=== PATIENT | female | born 1995 | race Caucasian/White ===

== ENCOUNTER 2023-07-16 02:12 | Emergency (ER) | payer OTHER, SELFPAY ==
[2023-07-16 02:42] VITALS: BMI 42.9
[2023-07-16 02:45] VITALS: BP 134/92; PULSE 94; RESP 18; TEMP 37.1; O2SAT 100
[2023-07-16 03:09] LABS: MANUAL DIFF FLAG NO
[2023-07-16 03:10] LABS: Basophils Absolute Auto 0.1 X10*3/uL (0.0-0.2); Basophils Percent Auto 0.7 % (0-2); Eosinophils Absolute Auto 0.2 X10*3/uL (0.0-0.4); Eosinophils Percent Auto 2.1 % (0-4); Hematocrit 40.9 % (37.0-47.0); Hemoglobin 13.6 g/dl (12.0-16.0); Imm Gran Abs Auto 0.02 X10*3/uL (0.00-0.03); Imm Gran Pct Auto 0.2 % (0.0-0.4); Lymphocytes Absolute Auto 2.4 X10*3/uL (1.2-4.9); Lymphocytes Percent Auto 28.2 % (20-40); Mean Corpuscular HGB Conc 33.3 g/dl (31.0-35.0); Mean Corpuscular Hemoglobin 29.5 pg (27.0-33.0); Mean Corpuscular Volume 88.7 fL (80.0-98.0); Mean Platelet Volume 9.5 fL (9.4-12.3); Monocytes Absolute Auto 0.8 X10*3/uL (0.1-1.2); Monocytes Percent Auto 8.8 % (2-11); Neutrophils Absolute Auto 5.2 x10*3/uL (2.0-8.3); Platelet Count 313 X10*3/uL (160-400); Red Blood Count 4.61 X10*6/uL (4.20-5.50); Red Cell Distribution Width 12.3 % (11.0-16.0); White Blood Count 8.6 X10*3/uL (4.8-10.8)
[2023-07-16] MEDS: Doxycycline Monohydrate 100 MG CAPSULE PO (03:13)
[2023-07-16] MEDS: Diphth,Pertus(ACell),Tet Adult 0.5 ML SYRINGE IM (03:13)
[2023-07-16 03:33] LABS: Alanine Aminotransferase 27 U/L (0-31); Albumin Level 4.3 g/dL (3.5-5.0); Alkaline Phosphatase 133 U/L (39-117); Anion Gap 13 (12-20); Aspartate Amino Transferase 18 U/L (5-31); Bilirubin Total 0.3 mg/dL (0.0-1.0); Blood Urea Nitrogen 13 mg/dL (9-16); Calcium 9.1 mg/dL (8.4-10.2); Carbon Dioxide 24 mmol/L (22-29); Chloride 106 mmol/L (96-108); Creatinine Clr Calc Pharmacy 127.2; Estimated Glomerular Filt Rate > 60; Glucose Random 123 mg/dL (60-115); Potassium 3.9 mmol/L (3.3-5.1); Sodium 139 mmol/L (135-145); Total Protein 7.4 g/dL (6.5-8.0)
--- OUTSIDE RECORDS SUMMARY | 2023-07-16 03:37 | XMS_ITS | Continuity of Care Document ---
Author Name Unknown Organization [facility] ter Address [address] [place] [address]- Care Team Providers Care Tool Design Drafter Name Role Phone John Espinoza MD Primary Care Physician Encounter [facility] [place] Date(s): 03/12/22 - 03/12/[address] [address]- Discharge Disposition: A-D/C Home Attending Physician: Julien Ames MD Admitting Physician: Julien Ames MD Referring Physician: Julien Ames MD Allergies, Adverse Reactions, Alerts No Known Allergies Medications Abilify 5 mg oral tablet 5 mg, 1, tablet, By Mouth, Daily, # 30 tablet, Refills 0, Maintenance, 01/23/22 15:44:00 EDT, Partial fill upon patient request if the prescription is for a schedule II opioid drug. Start Date: 01/23/22 Status: Ordered Colace sodium 100 mg oral capsule 100 mg, 1, capsule, By Mouth, 2 times a day, PRN, # 100 capsule, Refills 0, Tot. Refills 0, Maintenance, for constipation, 03/12/22 7:19:00 EDT, Route to Pharmacy Electronically, [id number], Partial fill upon patient request if the prescriptio... Start Date: 03/12/22 Status: Ordered ibuprofen 800 mg oral tablet 800 mg, 1, tablet, By Mouth, Every 8 hours, # 30 tablet, Refills 0, Tot. Refills 0, Maintenance, 03/12/22 7:19:00 EDT, Route to Pharmacy Electronically, [facility]/pharmacy #[id number], Partial fill upon patient request if the prescription is for a schedule II opi... Start Date: 03/12/22 Status: Ordered LaMICtal 100 mg oral tablet 100 mg, 1, tablet, By Mouth, 2 times a day, Refills 0, Maintenance, 01/23/22 14:59:00 EDT, Partial fill upon patient request if the prescription is for a schedule II opioid drug. Start Date: 01/23/22 Status: Ordered simethicone 80 mg oral tablet, chewable 80 mg, 1, tablet, Chew, 4 times a day, PRN, # 100 tablet, Refills 0, Tot. Refills 0, Maintenance, as needed for gas, 03/12/22 7:19:00 EDT, Route to Pharmacy Electronically, [facility]/pharmacy #[id number], Partial fill upon patient request if the prescription is f... Start Date: 03/12/22 Status: Ordered Tylenol 325 mg oral capsule 2 capsule = 650 mg, By Mouth, Every 4 hours, PRN as needed for pain, # 90 capsule, 0 Refills, Maintenance, 03/12/22 7:19:00 EDT, Capsule, [facility]/pharmacy #[id number], Partial fill upon patient request if the prescription is for a schedule II opioid drug., 110.... Start Date: 03/12/22 Status: Ordered Vital Signs Most recent to oldest [Reference Range]: 1 2 3 Oxygen Saturation [94-100 %] 99 % (03/12/22 9:15 AM) 100 % (03/12/22 9:00 AM) 100 % (03/12/22 8:45 AM) Pulse Rate [55-90 bpm] 83 bpm (03/12/22 6:46 AM) Blood Pressure [90-138/55-84 mm Hg] 129/75mm Hg (03/12/22 9:15 AM) 136/78mm Hg (03/12/22 9:00 AM) 142/82mm Hg *H* (03/12/22 8:45 AM) Respiratory Rate [16-30 br/min] 18 br/min (03/12/22 9:15 AM) 20 br/min (03/12/22 9:00 AM) 19 br/min (03/12/22 8:45 AM) Temperature [96.8-100.4 DegF] 96.8 DegF (03/12/22 9:15 AM) 97.6 DegF (03/12/22 8:45 AM) 96.9 DegF (03/12/22 6:46 AM) Liters per Minute 6 L/min (03/12/22 8:45 AM) Mode of Delivery (Oxygen) Room air (03/12/22 9:30 AM) Room air (03/12/22 9:15 AM) Simple face mask (03/12/22 9:00 AM) Blood pressure sites Arm, right (03/12/22 8:45 AM) Arm, left (03/12/22 6:46 AM) Temperature Route Temporal (03/12/22 9:15 AM) Temporal (03/12/22 8:45 AM) Temporal (03/12/22 6:46 AM) Dry Weight 110.6 kg (03/12/22 6:46 AM) Social History Social History Type Response Smoking Status Never (less than 100 in lifetime) entered on: 01/23/22 Sex
--- OUTSIDE RECORDS SUMMARY | 2023-07-16 03:37 | XMS_ITS | Continuity of Care Document ---
Author Name Unknown Organization [facility]i [facility] Address [address] [place] [address], [address] [place] [address]- Care Team Providers Care Industrial Roofer Helper Name Role Phone Alexis CARCAMO, John [id number] - [facility] [address] [facility], [address]th [place] [address]- Allergies, Adverse Reactions, Alerts No Known Allergies Medications Abilify 5 mg oral tablet 5 mg, 1, tablet, By Mouth, Daily, # 30 tablet, Refills 0, Maintenance, 01/23/22 15:44:00 EDT, Partial fill upon patient request if the prescription is for a schedule II opioid drug. Start Date: 01/23/22 Status: Ordered LaMICtal 100 mg oral tablet 100 mg, 1, tablet, By Mouth, 2 times a day, Refills 0, Maintenance, 01/23/22 14:59:00 EDT, Partial fill upon patient request if the prescription is for a schedule II opioid drug. Start Date: 01/23/22 Status: Ordered Social History Social History Type Response Smoking Status Never (less than 100 in lifetime) entered on: 01/23/22 Sex
--- OUTSIDE RECORDS SUMMARY | 2023-07-16 03:37 | XMS_ITS | Continuity of Care Document ---
Author Name Unknown Organization [facility] ter Address [address] [place] [address]- Care Team Providers Care Cub Reporter Name Role Phone Alexis CARCAMO, John Primary Care Physician [phone] Encounter [facility] [place] Date(s): 02/15/20 - 02/15/[address] [address]- [facility] Encounter Diagnosis Abdominal pain(Final) - 02/15/20 Discharge Disposition: A-D/C Home Attending Physician: Karyn Thornton MD Admitting Physician: Karyn Thornton MD Referring Physician: Not on Staff, Referring MD Allergies, Adverse Reactions, Alerts Substance Reaction Severity Status NKA Active Medications Flagyl 500 mg oral tablet 1 tablet = 500 mg, By Mouth, Every 12 hours, for 7 days, # 14 tablet, 0 Refills, Acute 02/22/20 13:54:00 EDT, 02/15/20 13:54:00 EDT, Tablet, [id number], 116.5, kg, 02/15/20 5:22:00 EDT, Dry Weight Start Date: 02/15/20 Stop Date: 02/22/20 Status: Ordered Results Orders for Microbiology Reports Name Date Wet Prep 02/15/20 Microbiology Reports TEST:Wet Prep STATUS:Auth (Verified) BODY SITE: SOURCE:VAGINA COLLECTED DATE/TIME:02/15/20 9:30 AM Wet Prep SPECIMEN DESCRIPTION : VAGINAL SPECIMEN SPECIAL REQUESTS : NONE DIRECT EXAM : 3+ WHITE BLOOD CELLS 1+ CLUE CELLS NO TRICHOMONAS OBSERVED NO YEAST OBSERVED REPORT STATUS : FINAL 02/15/2020 Vital Signs Most recent to oldest [Reference Range]: 1 2 3 Weight 116.5 kg (02/15/20 1:58 PM) 116.5 kg (02/15/20 5:22 AM) 116.5 kg (02/15/20 5:14 AM) Oxygen Saturation [94-100 %] 100 % (02/15/20 1:58 PM) 99 % (02/15/20 5:14 AM) Pulse Rate [55-90 bpm] 94 bpm *H* (02/15/20 1:58 PM) 91 bpm *H* (02/15/20 5:14 AM) Blood Pressure [90-138/55-84 mm Hg] 134/80mm Hg (02/15/20 1:58 PM) 147/74mm Hg *H* (02/15/20 5:14 AM) Respiratory Rate [16-30 br/min] 20 br/min (02/15/20 1:58 PM) 20 br/min (02/15/20 10:24 AM) 20 br/min (02/15/20 5:14 AM) Temperature [96.8-100.4 DegF] 98.3 DegF (02/15/20 5:14 AM) Mode of Delivery (Oxygen) Room air (02/15/20 1:58 PM) Room air (02/15/20 5:14 AM) Blood pressure sites Arm, left (02/15/20 1:58 PM) Arm, right (02/15/20 5:14 AM) Temperature Route Oral (02/15/20 5:14 AM) Dry Weight 116.5 kg (02/15/20 1:58 PM) 116.5 kg (02/15/20 5:22 AM) 116.5 kg (02/15/20 5:14 AM) Weight Obtained Via Standing scale (02/15/20 5:14 AM) Dry Weight Obtained Via Standing scale (02/15/20 5:14 AM)
--- OUTSIDE RECORDS SUMMARY | 2023-07-16 03:37 | XMS_ITS | Continuity of Care Document ---
Author Name Unknown Organization [facility] gonzalezC[facility]otechsteff[facility] Address [address] [facility], [address] [place] [address]- Care Team Providers Care Sleeping Car Porter Name Role Phone Alexis CARCAMO, John [id number] Date[facility] - [facility]12[facility] [address], [address]th [address] [place], [place] [address] Allergies, Adverse Reactions, Alerts No Known Allergies [...] 03/12/22 7:19:00 EDT, Route to Pharmacy Electronically, [facility]/pharmacy #[id number], Partial fill upon patient request if the prescriptio... Start Date: 03/12/22 Status: Ordered ibuprofen 800 mg oral tablet 800 mg, 1, tablet, By Mouth, Every 8 hours, # 30 tablet, Refills 0, Tot. Refills 0, Maintenance, 03/12/22 7:19:00 EDT, Route to Pharmacy Electronically, [facility]/pharmacy #[id number], Partial fill upon patient request if [...] 03/12/22 7:19:00 EDT, Route to Pharmacy Electronically, [facility]/pharmacy #[id number], Partial fill upon patient request if the prescription is f... Start Date: 03/12/22 Status: Ordered Tylenol 325 mg oral capsule 2 capsule = 650 mg, By Mouth, Every 4 hours, PRN as needed for pain, # 90 capsule, 0 Refills, Maintenance, 03/12/22 7:19:00 EDT, Capsule, [facility]/pharmacy #[id number], Partial fill upon patient request if the prescription is for a schedule II opioid drug., 110.... Start Date: 03/12/22 Status: Ordered Social History Social History Type Response Smoking Status Never (less than 100 in lifetime) entered on: 01/23/22 Sex
--- OUTSIDE RECORDS SUMMARY | 2023-07-16 03:37 | XMS_ITS | Continuity of Care Document ---
Author Name Unknown Organization [facility] Address Unknown Care Team Providers Care Claims Adjuster Name Role Phone Alexis CARCAMO, John Primary Care Physician [phone] Encounter [facility] [place] Date(s): 12/02/21 - 01/01/22 [facility] Allergies, Adverse Reactions, Alerts No Known Allergies
--- OUTSIDE RECORDS SUMMARY | 2023-07-16 03:37 | XMS_ITS | Continuity of Care Document ---
Author Name Unknown Organization [facility] Sumiradha gonzalezVTEX [facility] Address [address] [place] [address], [address], [place] [address]- Care Team Providers Care Medart Operator Name Role Phone John Espinoza MD Primary Care Phys[id number] - [facility]/26/[facility] Sumi Chelsea[facility] Surgical[facility] [address] [facility], [address] [place], [place] [address] Attending Physician: Julien Ames MD Referring Physician: John Espinoza MD Allergies, Adverse Reactions, Alerts No Known Allergies Medications Abilify 5 mg oral tablet 5 mg, 1, tablet, By Mouth, Daily, # 30 tablet, Refills 0, Maintenance, 01/23/22 15:44:00 EDT, Partial fill upon patient request if the prescription is for a schedule II opioid drug. Start Date: 01/23/22 Status: Ordered docusate sodium 100 mg oral capsule See Instructions, TAKE 1 CAPSULE BY MOUTH 2 TIMES A DAY NEEDED FOR CONSTIPATION, # 60 capsule, 1Refills, [id number], 110.6, kg, 03/12/22 6:46:00 EDT, Dry Weight Start Date: 03/14/22 Status: Ordered ibuprofen 800 mg oral tablet 800 mg, 1, tablet, By Mouth, Every 8 hours, # 30 tablet, Refills 0, Tot. Refills 0, Maintenance, 03/12/22 7:19:00 EDT, Route to Pharmacy Electronically, [facility]/pharmacy #[id number], Partial fill upon patient request if the [...] 03/12/22 7:19:00 EDT, Route to Pharmacy Electronically, [facility]/pharmacy #[id number], Partial fill upon patient request if the prescription is f... Start Date: 03/12/22 Status: Ordered Tylenol 325 mg oral capsule 2 capsule = 650 mg, By Mouth, Every 4 hours, PRN as needed for pain, # 90 capsule, 0 Refills, Maintenance, 03/12/22 7:19:00 EDT, Capsule, [facility]/pharmacy #[id number], Partial fill upon patient request if the prescription is for a schedule II opioid drug., 110.... Start Date: 03/12/22 Status: Ordered Social History Social History Type Response Smoking Status Never (less than 100 in lifetime) entered on: 01/23/22 Sex
--- OUTSIDE RECORDS SUMMARY | 2023-07-16 03:37 | XMS_ITS | Continuity of Care Document ---
Author Name Unknown Organization [facility] Sumi gonzalezInternet college internation [facility] Address [address] [facility], [address] [place] [address]- Care Team Providers Care Cane Furniture Maker Name Role Phone John Espinoza MD Primary [id number] Date[facility]28[facility] [address] [facility], [address] [place], [place] [address] Allergies, Adverse Reactions, Alerts No [...] NEEDED FOR CONSTIPATION, # 60 capsule, 1Refills, [facility] [id number], 110.6, kg, 03/12/22 6:46:00 EDT, Dry Weight Start Date: 03/14/22 Status: Ordered ibuprofen 800 mg oral tablet 800 mg, 1, tablet, By Mouth, Every 8 hours, # 30 tablet, Refills 0, Tot. Refills 0, Maintenance, 03/12/22 7:19:00 EDT, Route to Pharmacy Electronically, [facility]/pharmacy #[id number], Partial fill upon patient request if the [...] 03/12/22 7:19:00 EDT, Route to Pharmacy Electronically, [facility]/pharmacy #[id number], Partial fill upon patient request if the prescription is f... Start Date: 03/12/22 Status: Ordered Tylenol 325 mg oral capsule 2 capsule = 650 mg, By Mouth, Every 4 hours, PRN as needed for pain, # 90 capsule, 0 Refills, Maintenance, 03/12/22 7:19:00 EDT, Capsule, [facility]/pharmacy #[id number], Partial fill upon patient request if the prescription is for a schedule II opioid drug., 110.... Start Date: 03/12/22 Status: Ordered Social History Social History Type Response Smoking Status Never (less than 100 in lifetime) entered on: 01/23/22 Sex
--- OUTSIDE RECORDS SUMMARY | 2023-07-16 03:37 | XMS_ITS | Continuity of Care Document ---
Author Name Unknown Organization [facility] Address [address] [facility] [facility], [address] [place] [address]- Care Team Providers Care Hardening Machine Operator Name Role Phone John Espinoza MD Primary Care Physician [id number] Date(s): 03/13/22 - 04/12/22 [facility] [address], [address] [place], [place] [address] Allergies, Adverse Reactions, Alerts No [...] NEEDED FOR CONSTIPATION, # 60 capsule, 1Refills, [facility] [id number], 110.6, kg, 03/12/22 6:46:00 EDT, Dry Weight Start Date: 03/14/22 Status: Ordered ibuprofen 800 mg oral tablet 800 mg, 1, tablet, By Mouth, Every 8 hours, # 30 tablet, Refills 0, Tot. Refills 0, Maintenance, 03/12/22 7:19:00 EDT, Route to Pharmacy Electronically, [facility]/pharmacy #[id number], Partial fill upon patient request if the [...] 03/12/22 7:19:00 EDT, Route to Pharmacy Electronically, [facility]/pharmacy #[id number], Partial fill upon patient request if the prescription is f... Start Date: 03/12/22 Status: Ordered Tylenol 325 mg oral capsule 2 capsule = 650 mg, By Mouth, Every 4 hours, PRN as needed for pain, # 90 capsule, 0 Refills, Maintenance, 03/12/22 7:19:00 EDT, Capsule, [facility]/pharmacy #[id number], Partial fill upon patient request if the prescription is for a schedule II opioid drug., 110.... Start Date: 03/12/22 Status: Ordered Social History Social History Type Response Smoking Status Never (less than 100 in lifetime) entered on: 01/23/22 Sex
--- OUTSIDE RECORDS SUMMARY | 2023-07-16 03:37 | XMS_ITS | Continuity of Care Document ---
Author Name Unknown Organization [facility]urt nTok[facility] Address [address] [facility], [address] [place] [address]- Care Team Providers Care Superintendent Meters Name Role Phone John Espinoza MD Primary Care Physician [facility] [id number] Date(s): 03/27/22 - 04/26/22 [facility] [address] [facility], [address] [place], [place] [address] Attending Physician: Yg Ortiz Admitting Physician: AdmtrYg Referring Physician: Admtr, Ar8 Allergies, Adverse Reactions, Alerts No Known Allergies [...] NEEDED FOR CONSTIPATION, # 60 capsule, 1Refills, [facility] [address], 110.6, kg, 03/12/22 6:46:00 EDT, Dry Weight Start Date: 03/14/22 Status: Ordered ibuprofen 800 mg oral tablet 800 mg, 1, tablet, By Mouth, Every 8 hours, # 30 tablet, Refills 0, Tot. Refills 0, Maintenance, 03/12/22 7:19:00 EDT, Route to Pharmacy Electronically, [facility]/pharmacy #[id number], Partial fill upon patient request if the [...] 03/12/22 7:19:00 EDT, Route to Pharmacy Electronically, [facility]/pharmacy #[id number], Partial fill upon patient request if the prescription is f... Start Date: 03/12/22 Status: Ordered Tylenol 325 mg oral capsule 2 capsule = 650 mg, By Mouth, Every 4 hours, PRN as needed for pain, # 90 capsule, 0 Refills, Maintenance, 03/12/22 7:19:00 EDT, Capsule, [facility]/pharmacy #[id number], Partial fill upon patient request if the prescription is for a schedule II opioid drug., 110.... Start Date: 03/12/22 Status: Ordered Social History Social History Type Response Smoking Status Never (less than 100 in lifetime) entered on: 01/23/22 Sex
--- OUTSIDE RECORDS SUMMARY | 2023-07-16 03:37 | XMS_ITS | Continuity of Care Document ---
Author Name Unknown Organization [facility] Address [address] [facility], [address] [place] [address]- Care Team Providers Care Retort Fireman Name Role Phone John Espinoza MD Primary Care Physician [phone] [id number] Date(s): 02/26/22 - [facility] [address] [facility], [address] [place], [place] [address] Allergies, Adverse Reactions, Alerts No Known [...] NEEDED FOR CONSTIPATION, # 60 capsule, 1Refills, [facility], 110.6, kg, 03/12/22 6:46:00 EDT, Dry Weight Start Date: 03/14/22 Status: Ordered ibuprofen 800 mg oral tablet 800 mg, 1, tablet, By Mouth, Every 8 hours, # 30 tablet, Refills 0, Tot. Refills 0, Maintenance, 03/12/22 7:19:00 EDT, Route to Pharmacy Electronically, [facility][id number], Partial fill upon patient request if the [...] 03/12/22 7:19:00 EDT, Route to Pharmacy Electronically, [facility][id number], Partial fill upon patient request if the prescription is f... Start Date: 03/12/22 Status: Ordered Tylenol 325 mg oral capsule 2 capsule = 650 mg, By Mouth, Every 4 hours, PRN as needed for pain, # 90 capsule, 0 Refills, Maintenance, 03/12/22 7:19:00 EDT, Capsule, [facility]/pharmacy #[id number], Partial fill upon patient request if the prescription is for a schedule II opioid drug., 110.... Start Date: 03/12/22 Status: Ordered Social History Social History Type Response Smoking Status Never (less than 100 in lifetime) entered on: 01/23/22 Sex
--- OUTSIDE RECORDS SUMMARY | 2023-07-16 03:37 | XMS_ITS | Continuity of Care Document ---
Author Name Unknown Organization [facility] Sumi Hurt n's [facility] Address [address] [place] [address], [address] [place] [address]- Care Team Providers Care Support Services Specialist Name Role Phone John Espinoza MD Primary Care Physician En[place] [facility] [place] Date(s): 01/23/22 - 01/30/22 [facility] Sumi Tranvia680s [facility] [address] [facility], [address] [place] [address]- Attending Physician: Julien Ames MD Referring Physician: [...] opioid drug. Start Date: 01/23/22 Status: Ordered Procedures Procedure Date Related Diagnosis Body Site Status section Complete d Vital Signs Most recent to oldest [Reference Range]: 1 Weight 111.4 kg (01/23/22 2:57 PM) Pulse Rate [55-90 bpm] 81 bpm (01/23/22 2:57 PM) Blood Pressure [90-138/55-84 mm Hg] 132/ 74mm Hg (01/23/22 2:57 PM) Blood pressure sites Arm, right (01/23/22 2:57 PM) Dry Weight 111.4 kg (01/23/22 2:57 PM) Weight Obtained Via Standing scale (01/23/22 2:57 PM) Dry Weight Obtained Via Standing scale (01/23/22 2:57 PM) Social History Social History Type Response Smoking Status Never (less than 100 in lifetime) entered on: 01/23/22 Sex
--- NOTE | 2023-07-16 04:08 | ED_ITS ---
HPI - Skin/Abscess/Foreign Bdy General Chief complaint: Skin/Abscess/Foreign Body Stated complaint: Infection from tattoo? Time Seen by Provider: 07/16/23 03:00 Source: patient Mode of arrival: ambulatory Limitations: no limitations History of Present Illness HPI narrative: Patient has tattoo on right lower extremity 2 days ago notices pain increased redness surrounding the tattoo area no fever no chills Related Data Previous Rx's Medication Instructions Recorded cephalexin 500 mg capsule 500 mg PO QID 10 days #40 caps 07/16/23 doxycycline hyclate 100 mg tablet 100 mg PO BID #20 tabs 07/16/23 Allergies Allergy/AdvReac Type Severity Reaction Status Date / Time No Known Allergies Allergy Verified 07/16/23 02:52 Review of Systems 2 Review of Systems: Yes all other systems are reviewed and are negative [facility] Social History Social History Advance Directives: No Advance Directives Information Provided: Yes Physical Exam 2 Vital Signs: Vital Signs: Last Vital Signs Temp 98.7 F 07/16/23 02:45 Pulse 94 07/16/23 02:45 Resp 18 07/16/23 02:45 BP 134/92 H 07/16/23 02:45 Pulse Ox 100 07/16/23 02:45 O2 Del Method Room Air 07/16/23 02:45 BMI result Body Mass Index 42.9 Appearance: Alert. Oriented X3. No acute distress. CVS: Normal heart rate and rhythm. Pulses normal. Respiratory: No respiratory distress. Equal air entry bilateral, Abdomen: Soft and nontender. Bowel sounds are present, Skin: Skin warm and dry. Erythema around surrounding the tattoo area no pus discharge Extremities: No lower extremity edema. No calf tenderness Neuro: Oriented X 3. Medications Administered Discontinued Medications Generic Name Dose Route Start Last Admin Trade Name Freq PRN Reason Stop Dose Admin Diphtheria/Tetanus/Acell Pertussis 0.5 ml 07/16/23 03:04 07/16/23 03:13 Diphth,Pertus(Acell),Tet Adult 0.5 Ml Syringe IM 07/16/23 03:05 0.5 ml .ONCE ONE Administration Doxycycline Monohydrate 100 mg 07/16/23 03:03 07/16/23 03:13 Doxycycline Monohydrate 100 Mg Capsule PO 07/16/23 03:04 100 mg ONCE ONE Administration Cefazolin Sodium 1 gm/ Sodium 50 mls @ 100 mls/hr 07/16/23 03:03 07/16/23 03:14 Chloride IV 07/16/23 03:32 100 mls/hr ONCE ONE Administration Medical Decision Making Medical Decision Making [facility] Narrative: Patient has mild cellulitis around tattoo area tetanus shot was given along with IV Ancef discharge patient home on cephalexin and doxycycline Differential Diagnosis Differential Diagnoses: The differential diagnosis associated with the presentation includes Cellulitis/abscess Lab Data [facility] Lab Attestation statement: I reviewed the patient's lab results. 07/16/23 03:04 07/16/23 03:04 Labs: Lab Results 07/16/23 Range/Units 03:04 WBC 8.6 (4.8-10.8) X10*3/uL RBC 4.61 (4.20-5.50) X10*6/uL Hgb 13.6 (12.0-16.0) g/dl Hct 40.9 (37.0-47.0) % MCV 88.7 (80.0-98.0) fL MCH 29.5 (27.0-33.0) pg MCHC 33.3 (31.0-35.0) g/dl RDW 12.3 (11.0-16.0) % Plt Count 313 (160-400) X10*3/uL MPV 9.5 (9.4-12.3) fL Immature Gran % (Auto) 0.2 (0.0-0.4) % Neut % (Auto) 60.0 (45-73) % Lymph % (Auto) 28.2 (20-40) % [place] % (Auto) 8.8 (2-11) % Eos % (Auto) 2.1 (0-4) % Baso % (Auto) 0.7 (0-2) % Lymph # (Auto) 2.4 (1.2-4.9) X10*3/uL [place] # (Auto) 0.8 (0.1-1.2) X10*3/uL Eos # (Auto) 0.2 (0.0-0.4) X10*3/uL Baso # (Auto) 0.1 (0.0-0.2) X10*3/uL Abs Immat Gran (auto) 0.02 (0.00-0.03) X10*3/uL Absolute Neuts (auto) 5.2 (2.0-8.3) x10*3/uL Absolute Nucleated RBC 0.000 (0.0-0.012) X10*3/uL Nucleated RBC % (auto) 0.0 (0.0-0.2) /100WBC Sodium 139 (135-145) mmol/L Potassium 3.9 (3.3-5.1) mmol/L Chloride 106 (96-108) mmol/L Carbon Dioxide 24 (22-29) mmol/L Anion Gap 13 (12-20) BUN 13 (9-16) mg/dL Creatinine 0.82 (0.5-1.4) mg/dL Estim Creat Clear Calc 127.2 Estimated GFR > 60 Random Glucose 123 H (60-115) mg/dL Calcium 9.1 (8.4-10.2) mg/dL Total Bilirubin 0.3 (0.0-1.0) mg/dL AST 18 (5-31) U/L ALT 27 (0-31) U/L Alkaline Phosphatase 133 H (39-117) U/L Total Protein 7.4 (6.5-8.0) g/dL Albumin 4.3 (3.5-5.0) g/dL Discharge Plan Discharge Clinical Impression: Cellulitis Patient Disposition: Home, Self-Care Instructions: Cellulitis (ED) Additional Instructions: Take antibiotic as prescribed Local care as advised Report to the ER if worsening of the swelling or redness/fever Prescriptions: New cephalexin 500 mg capsule 500 mg PO QID 10 Days Qty: 40 0RF doxycycline hyclate 100 mg tablet 100 mg PO BID Qty: 20 0RF
[2023-07-16 04:35] VITALS: BP 146/88; PULSE 82; RESP 16; TEMP 37.1; O2SAT 100
== END 2023-07-16 04:43 | disposition home or self-care (01) ==
PROVIDERS: Emergency Provider Internal Medicine
DX: L03.115 Cellulitis of right lower limb (principal); M79.661 Pain in right lower leg; L81.8 Other specified disorders of pigmentation
CPT/HCPCS: 36415; 80053; 85025; 90471; 90715; 96365; 96367; 99284; J0690

== ENCOUNTER 2023-08-08 07:38 | Emergency (ER) | payer OTHER, SELFPAY ==
[2023-08-08 07:45] VITALS: BP 136/85; PULSE 90; RESP 20; TEMP 37.1; O2SAT 100; BMI 42.8
--- NOTE | 2023-08-08 08:55 | PC.NURSE ---
patient a&ox3, pt awaiting in room to be seen by a provider- pt was updated as to the wait, will continue to monitor
--- NOTE | 2023-08-08 09:39 | ED_ITS ---
HPI - Skin/Abscess/Foreign Bdy General Chief complaint: Skin/Abscess/Foreign Body Stated complaint: cyst Time Seen by Provider: 08/08/23 09:05 Source: patient Mode of arrival: ambulatory Limitations: no limitations History of Present Illness HPI narrative: 27yo female with no known medical history here with complaints of pain, swelling to area near her anus. No fevers/ chills Related Data Previous Rx's Medication Instructions Recorded cephalexin 500 mg capsule 500 mg PO QID 10 days #40 caps 07/16/23 doxycycline hyclate 100 mg tablet 100 mg PO BID #20 tabs 07/16/23 sulfamethoxazole 800 1 tab PO BID #14 tabs 08/08/23 mg-trimethoprim 160 mg tablet (Bactrim DS) Allergies Allergy/AdvReac Type Severity Reaction Status Date / Time No Known Allergies Allergy Verified 08/08/23 07:46 Review of Systems 2 Review of Systems: Yes all other systems are reviewed and are negative Constitutional: Constitutional: Reports no additional constitutional complaints, Denies body ache(s), Denies chills, Denies fever(s), Denies headache(s) and Denies weakness Eyes: Eyes: Reports no additional eye complaints and Denies change in vision ENT: Reports system reviewed and no additional complaints, except as documented, Denies dizziness, Denies headache(s), Denies nasal congestion, Denies nasal discharge and Denies neck pain Cardiovascular: Cardiovascular: Reports no additional cardiovascular complaints, Denies chest pain, Denies leg edema and Denies dyspnea Respiratory: Respiratory: Reports no additional respiratory complaints, Denies cough and Denies dyspnea Gastrointestinal: Gastrointestinal: Reports no additional gastrointestinal complaints, Denies abdominal pain, Denies diarrhea, Denies nausea and Denies vomiting Genitourinary: Genitourinary: Reports no additional female genitourinary complaints and Denies urinary incontinence Musculoskeletal: Musculoskeletal: Reports no additional musculoskeletal complaints, Denies back pain, Denies arthralgias, Denies joint swelling, Denies neck pain, Denies numbness and Denies tingling Integumentary/Breasts: Skin/Breast: Reports system reviewed and no additional complaints, except as docu, Reports furuncle and Denies rash Neurologic: Reports system reviewed and no additional complaints, except as documented, Denies Abnormal speech present, Denies dizziness, Denies headache(s), Denies numbness, Denies tingling and Denies weakness [facility] Past Medical History Attestation statement: The following information was validated with the patient. Source: old records reviewed and nursing notes reviewed Social History Social History Advance Directives: No Advance Directives Information Provided: No Physical Exam 2 Vital Signs: Vital Signs: Last Vital Signs Temp 98.7 F 08/08/23 07:45 Pulse 90 08/08/23 07:45 Resp 20 08/08/23 07:45 BP 136/85 08/08/23 07:45 Pulse Ox 100 08/08/23 07:45 O2 Del Method Room Air 08/08/23 07:45 BMI result Body Mass Index 42.8 Const: General: cooperative, healthy appearing, comfortable and no acute distress Orientation/consciousness: patient oriented x3 Limitations: no limitations HEENT: Head: Yes normal to inspection Ears: hearing grossly normal bilaterally General nose exam: Normal external nose present Face and sinus: Yes normal facial exam Mouth: Normal oral and palatal mucosa present Throat: Yes posterior oropharynx normal Eyes: General: appearance normal, both eyes and all related structures P upils: Equal, round and reactive pupils present Neck: Neck: Yes normal visual inspection Chest: Chest palpation & inspection: normal inspection of the chest Resp: Effort & Inspection: normal respiratory effort Auscultation: clear to auscultation bilaterally Cardio: Rate: regular rate Rhythm: regular rhythm Peripheral pulses: P eripheral pulses 2+ throughout GI: Inspection: Yes normal to inspection Palpation (GI): Soft to palpation and nontender Auscultation: normal bowel sounds : 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 Medium-sized abscess with local fluctuance and surrounding induration which does not track to the perineum or the anus Back/Spine/Pelvis: Thoracic/Lumbar Spine: thoracic and lumbar spine normal to inspection Skin: General skin exam: no rashes or lesions noted Neuro: General: patient oriented x3, no focal motor deficits and normal sensation to monofilament Cranial nerves: Yes Equal, round and reactive pupils present Cognition (Neuro): normal cognition Speech: No Abnormal speech present Gait exam (Neuro): Normal gait present Motor exam (neuro): 5/5 motor strength present throughout Extrem: General: Yes normal to inspection Medications Administered Discontinued Medications Generic Name Dose Route Start Last Admin Trade Name Freq PRN Reason Stop Dose Admin Lidocaine HCl 1 appl 08/08/23 09:38 08/08/23 09:48 Lidocaine 4 % Cream Kit TOPICAL 08/08/23 09:39 1 appl ONCE ONE Administration Protocol Lidocaine HCl 2 ml 08/08/23 09:38 08/08/23 10:26 Lidocaine Hcl 1 % Mpf 2 Ml Vial INFILTRATI 08/08/23 09:39 2 ml ONCE ONE Administration Medical Decision Making Medical Decision Making MDM Narrative: 27yo female with no known medical history here with complaints of pain, swelling to area near her anus. No fevers/ chills See PE. Will apply topical LMX, perform I&D Differential Diagnosis Differential Diagnoses: The differential diagnosis associated with the presentation includes abscess low concern for necrotizing skin infection, cellulitis, Reji gangrene no extension to anus to suggest perirectal abscess Admission/Observation Consideration of admission/observation: Escalation of care including admission/observation considered Small abscess w/ I&D. no systemic signs or symptoms concerning for infection, no history of immunocompromise state, has not been on antibiotics to this point. does not warrant admission for IV antibiotic Tests considered The following testing was considered but not selected: no extension to the perineum, anus to suggest need for CT with IV contrast Prescription Management I considered prescription management with: Antibiotic Procedures Abscess I/D Site: other (left buttocks) Side (if applicable): left Local Anesthetic: lidocaine 1% Amount of anesthesia used (mL): 1 Technique: incised with blade Irrigation: No Packing used?: none Discharge Plan Discharge Clinical Impression: Abscess of skin or subcutaneous tissue Patient Disposition: Home, Self-Care Instructions: Abscess (ED) Additional Instructions: Warm compresses or soaks as discussed Motrin or tylenol for pain as needed Prescriptions: New sulfamethoxazole-trimethoprim [Bactrim DS] 800-160 mg tablet 1 tab PO BID Qty: 14 0RF No Action cephalexin 500 mg capsule 500 mg PO QID 10 Days Qty: 40 0RF doxycycline hyclate 100 mg tablet 100 mg PO BID Qty: 20 0RF Referrals: Physician,Unknown J [Primary Care Provider] - 1 week Stand Alone Forms: Work/School Release Interventions: ED Discharge Assessment Last Done: 08/08/23 10:30 Discharge Date/Time: 08/08/23 10:31
[2023-08-08] MEDS: Lidocaine 4 % Cream KIT 1 APPL TOPICAL (09:48)
--- NOTE | 2023-08-08 09:48 | PC.NURSE ---
lido cream applied by provider
[2023-08-08] MEDS: Lidocaine HCl 1 % MPF 2 ML VIAL INFILTRATI (10:26)
--- NOTE | 2023-08-08 10:30 | PC.NURSE ---
abscess lanced and drained by provider, this nurse bedside assist, pt tolerated well, will discharge
== END 2023-08-08 10:31 | disposition home or self-care (01) ==
PROVIDERS: Emergency Provider Emergency Medicine
DX: L02.31 Cutaneous abscess of buttock (principal)
CPT/HCPCS: 10060; 99283; 99284

== ENCOUNTER 2024-01-28 08:38 | Emergency (ER) | payer OTHER, SELFPAY ==
--- NOTE | ~2024-01-28 | XR_ITS ---
EXAMINATION: XR CHEST CLINICAL INFORMATION: Chest pain COMPARISON: None available. TECHNIQUE: Frontal view of the chest was obtained. FINDINGS: No evidence for failure. Lung jacob are grossly clear. No effusion. Mildly prominent cardiac silhouette. Hilar regions do not appear pathologically enlarged. XR/XR chest 1V IMPRESSION: No acute finding.
--- NOTE | 2024-01-28 08:39 | ECG_ITS ---
Test Reason : CP Blood Pressure : / mmHG Vent. Rate : 076 BPM Atrial Rate : 076 BPM P-R Int : 140 ms QRS Dur : 086 ms QT Int : 390 ms P-R-T Axes : 021 016 010 degrees QTc Int : 438 ms Normal sinus rhythm with sinus arrhythmia Normal ECG No previous ECGs available Referred By: Generic ED Physician Electronically Signed By:CROW GUPTA MD
[2024-01-28 08:45] VITALS: BP 140/73; PULSE 73; RESP 18; TEMP 36.6; O2SAT 100; BMI 41.1
--- NOTE | 2024-01-28 09:06 | ED_ITS ---
HPI - Chest Pain General Chief Complaint: Chest Pain Stated Complaint: Chest pain, SOB Time Seen by Provider: 01/28/24 09:04 Source: patient Mode of arrival: ambulatory Limitations: no limitations History of Present Illness ED Provider: HAKAN RAINES narrative: 28 yo female with prior chest pain currently being worked up for POTs with [facility] just had ECHO 12/25 mild systolic dysfunction EF 50%, mild mitral regurgitation 1+, here with c/o waking up with chest pressure radiating to abdomen and back since 4am. No other symptoms. No travel, procedures, OPC use. No hx of dissection in family. Has had this before but goes away faster in past. MD complaint: chest pain Onset (ago): hour(s) (4am today) Timing of current episode: constant Prior episodes: Yes Onset: during rest Pain location: substernal Pain radiation: abdomen Severity: moderate Quality: aching Exacerbating factors: nothing Treatment prior to arrival: none Related Data Previous Rx's ?Medication ?Instructions ?Recorded cephalexin 500 mg capsule 500 mg PO QID 10 days #40 caps 07/16/23 doxycycline hyclate 100 mg tablet 100 mg PO BID #20 tabs 07/16/23 sulfamethoxazole 800 1 tab PO BID #14 tabs 08/08/23 mg-trimethoprim 160 mg tablet (Bactrim DS) cyclobenzaprine 10 mg tablet 10 mg PO TID PRN muscle spasm #20 01/28/24 tabs lidocaine 5 % topical patch 1 patch topical DAILY #30 ea 01/28/24 Allergies Allergy/AdvReac Type Severity Reaction Status Date / Time No Known Allergies Allergy Verified 01/28/24 08:47 Review of Systems 2 Review of Systems: Constitutional : No Weight loss, No Fever, No Chills ENT/Mouth : No sore throat, No Rhinorrhea Eyes: No Eye Pain, No Swelling Cardiovascular : pos Chest Pain, no SOB, no Dyspnea on Exertion, No Orthopnea, No Edema, No Palpitations Respiratory : No Cough, No Sputum Gastrointestinal : no Nausea, No Vomiting, No Diarrhea, No abdominal Pain, No Hematochezia, No Melena Genitourinary : No Dysuria, No Urinary Frequency Musculoskeletal : No joint pain, No Myalgias, No Joint Swelling Skin : No Skin Lesions, No rash Neuro : No Weakness, No Numbness, No Dizziness, No Headache Psych : No Anxiety/Panic, No Depression All other systems reviewed and are negative [facility] Past Medical History Attestation statement: The following information was validated with the patient. Source: old records reviewed Medical History Chest pain Social History Social History (Updated 01/28/24 @ 09:46 by Eleni Vargas DO) Patient Tobacco Use Status: Never used Tobacco Use of substances other than those prescribed or required for medical reasons: No Advance Directives: No Advance Directives Information Provided: Yes Do you have a plan to hurt others: No Plan Physical Exam 2 Vital Signs: Vital Signs: Last Vital Signs Temp 97.9 F 01/28/24 09:35 Pulse 55 01/28/24 09:35 Resp 18 01/28/24 09:35 BP 121/69 01/28/24 09:35 Pulse Ox 100 01/28/24 08:45 O2 Del Method Room Air 01/28/24 09:35 BMI result Body Mass Index 41.1 Appearance: Alert. Oriented X3. No acute distress. Eyes: Pupils equal, round and reactive to light. ENT: Pharynx normal. Neck: Normal inspection. Neck supple. CVS: Normal heart rate and rhythm. Pulses normal. Chest: ttp along chest wall reproduces pain Respiratory: No respiratory distress. Breath sounds normal. Abdomen: Soft and nontender. Skin: Skin warm and dry. Normal skin color. Normal skin turgor. Extremities: No lower extremity edema. No calf ttp Neuro: Oriented X 3. No motor deficit. No sensory deficit. Medical Decision Making Medical Decision Making MDM Narrative: 28 yo female with PMH of prior chest pain, working up for POTS with cardiology has had recent ECHO showing EF 50-50%, mild mitral regurgitation but no GWMA she has c/o chest wall pain today waking up at 4am and radiated to epigastric area and her back - all distal pulses intact it is reproduceable no recent illness travel OCP use. She is PERC negative, distal pulses intact doubt dissection. Troponin, EKG, CXR if trop negative at 5 hour jeffrey doubt ACS - has no known ACS risk factors. Differential Diagnosis Differential Diagnoses: The differential diagnosis associated with the presentation includes atypical chest pain, costochondritis. Admission/Observation Consideration of admission/observation: Escalation of care including admission/observation considered trop negative at 5 hr jeffrey just had ECHO without GWMA, CXR negative, EKG nonischemic, PERC negative, BNP negative Lab Data [facility] Lab Attestation statement: I reviewed the patient's lab results. 01/28/24 09:40 01/28/24 09:40 Labs: Lab Results 01/28/24 Range/Units 09:40 WBC 6.5 (4.8-10.8) X10*3/uL RBC 4.10 L (4.20-5.50) X10*6/uL Hgb 12.5 (12.0-16.0) g/dl Hct 36.9 L (37.0-47.0) % MCV 90.0 (80.0-98.0) fL MCH 30.5 (27.0-33.0) pg MCHC 33.9 (31.0-35.0) g/dl RDW 12.6 (11.0-16.0) % Plt Count 269 (160-400) X10*3/uL MPV 9.7 (9.4-12.3) fL Immature Gran % (Auto) 0.2 (0.0-0.4) % Neut % (Auto) 60.4 (45-73) % Lymph % (Auto) 28.1 (20-40) % [place] % (Auto) 8.9 (2-11) % Eos % (Auto) 1.8 (0-4) % Baso % (Auto) 0.6 (0-2) % Lymph # (Auto) 1.8 (1.2-4.9) X10*3/uL [place] # (Auto) 0.6 (0.1-1.2) X10*3/uL Eos # (Auto) 0.1 (0.0-0.4) X10*3/uL Baso # (Auto) 0.0 (0.0-0.2) X10*3/uL Abs Immat Gran (auto) 0.01 (0.00-0.03) X10*3/uL Absolute Neuts (auto) 3.9 (2.0-8.3) x10*3/uL Absolute Nucleated RBC 0.000 (0.0-0.012) X10*3/uL Nucleated RBC % (auto) 0.0 (0.0-0.2) /100WBC Sodium 140 (135-145) mmol/L Potassium 4.1 (3.3-5.1) mmol/L Chloride 108 (96-108) mmol/L Carbon Dioxide 24 (22-29) mmol/L Anion Gap 12 (12-20) BUN 12 (9-16) mg/dL Creatinine 0.71 (0.5-1.4) mg/dL Estim Creat Clear Calc 147.1 Estimated GFR > 60 Random Glucose 100 (60-115) mg/dL Calcium 9.1 (8.4-10.2) mg/dL Total Bilirubin 0.5 (0.0-1.0) mg/dL Direct Bilirubin 0.2 (0.0-0.5) mg/dL AST 18 (5-31) U/L ALT 23 (0-31) U/L Alkaline Phosphatase 84 (39-117) U/L Troponin I High Sens < 2.7 (<3.5-17.0) ng/L B-Natriuretic Peptide < 10 (<100) pg/mL Total Protein 6.8 (6.5-8.0) g/dL Albumin 4.2 (3.5-5.0) g/dL Lipase 13 (8-78) U/L Urine Color Yellow Urine Appearance Clear Urine pH 7.0 (5.0-9.0) Ur Specific [place] 1.025 (1.005-1.025) Urine Protein Negative (Neg-Trace) mg/dL Urine Glucose (UA) Negative (Negative) mg/dL Urine Ketones Negative (Negative) mg/dL Urine Blood Trace H (Negative) Urine Nitrite Negative (Negative) Ur Leukocyte Esterase Negative (Negative) Urine RBC 0-2 (0-2) /HPF Urine WBC 0-5 (0-5) /HPF Ur Squamous Epith Cells 3-5 (0-2) /HPF Urine Bacteria None Seen (None Seen) Hyaline Casts 0-2 (0-2) /LPF Independent Interpretation I performed an independent interpretation of an: EKG and Plain X-Ray (normal ) Interpretation: Rate: 76 Rhythm: NSR [place]: normal Normal P waves. Normal GI[place]. Normal QRS complex. ST T wave : normal inverted t wave III no SOLED[place] qTC: 438 prior studies: no acute ischemia The study has been interpreted contemporaneously by me. . Radiology Impression Discussion of test interpretation with radiology: I have reviewed the radiologist's reading. Independent Historian Clinical information obtained from an independent historian. History obtained from or confirmed by: Spouse External Record Review External record reviewed: Inpatient record and Outpatient record Prescription Management I considered prescription management with: Pain Medication and Other Discharge Plan Discharge Clinical Impression: Acute costochondritis Patient Disposition: Home, Self-Care Instructions: Costochondritis (ED) Additional Instructions: negative EKG, normal chest xray, negative test for heart failure, no anemia, tests for kidney liver and pancreas are normal please follow up with your parliamentary archivist regarding your ECHO it was mitral regurgitation - you would monitor for swelling in ankles but it was mild as you were told so given age anticipate no acute issues at this time but should be monitored as you get older return for any worsening symptoms or concerns. Prescriptions: New cyclobenzaprine 10 mg tablet 10 mg PO TID PRN (Reason: muscle spasm) Qty: 20 0RF lidocaine 5 % adhesive patch,medicated 1 patch topical DAILY Qty: 30 0RF Rx Instructions: leave on most painful area for up to 12 hrs No Action sulfamethoxazole-trimethoprim [Bactrim DS] 800-160 mg tablet 1 tab PO BID Qty: 14 0RF cephalexin 500 mg capsule 500 mg PO QID 10 Days Qty: 40 0RF doxycycline hyclate 100 mg tablet 100 mg PO BID Qty: 20 0RF Stand Alone Forms: Work/School Release Print Language: Yoruba
[2024-01-28 09:35] VITALS: BP 121/69; PULSE 55; RESP 18; TEMP 36.6
[2024-01-28 09:53] LABS: MANUAL DIFF FLAG NO
[2024-01-28 09:58] LABS: Basophils Percent Auto 0.6 % (0-2); Eosinophils Absolute Auto 0.1 X10*3/uL (0.0-0.4); Eosinophils Percent Auto 1.8 % (0-4); Hematocrit 36.9 % (37.0-47.0); Hemoglobin 12.5 g/dl (12.0-16.0); Imm Gran Abs Auto 0.01 X10*3/uL (0.00-0.03); Imm Gran Pct Auto 0.2 % (0.0-0.4); Lymphocytes Absolute Auto 1.8 X10*3/uL (1.2-4.9); Lymphocytes Percent Auto 28.1 % (20-40); Mean Corpuscular HGB Conc 33.9 g/dl (31.0-35.0); Mean Corpuscular Hemoglobin 30.5 pg (27.0-33.0); Mean Platelet Volume 9.7 fL (9.4-12.3); Monocytes Absolute Auto 0.6 X10*3/uL (0.1-1.2); Monocytes Percent Auto 8.9 % (2-11); Neutrophils Absolute Auto 3.9 x10*3/uL (2.0-8.3); Neutrophils Percent Auto 60.4 % (45-73); Platelet Count 269 X10*3/uL (160-400); Red Cell Distribution Width 12.6 % (11.0-16.0); White Blood Count 6.5 X10*3/uL (4.8-10.8)
[2024-01-28 10:02] LABS: Appearance Urine Clear; Color Urine Yellow; Glucose Urine UA Negative (Negative); Leukocyte Esterase Urine Negative (Negative); Nitrite Urine Negative (Negative); Specific Gravity - Urine 1.025 (1.005-1.025); UMIC TRIGGER UACC YES; Urine Blood Trace (Negative); Urine Ketones Negative (Negative); Urine Protein Negative (Neg-Trace)
[2024-01-28 10:04] LABS: Bacteria Urine None Seen (None Seen); Hyaline Casts Urine 0-2 /LPF (0-2); RBC Urine 0-2 /HPF (0-2); WBC Urine 0-5 /HPF (0-5)
[2024-01-28 10:17] LABS: Alanine Aminotransferase 23 U/L (0-31); Albumin Level 4.2 g/dL (3.5-5.0); Alkaline Phosphatase 84 U/L (39-117); Anion Gap 12 (12-20); Aspartate Amino Transferase 18 U/L (5-31); Bilirubin Direct 0.2 mg/dL (0.0-0.5); Bilirubin Total 0.5 mg/dL (0.0-1.0); Blood Urea Nitrogen 12 mg/dL (9-16); Calcium 9.1 mg/dL (8.4-10.2); Carbon Dioxide 24 mmol/L (22-29); Chloride 108 mmol/L (96-108); Creatinine Clr Calc Pharmacy 147.1; Estimated Glomerular Filt Rate > 60; Glucose Random 100 mg/dL (60-115); Lipase 13 U/L (8-78); Potassium 4.1 mmol/L (3.3-5.1); Sodium 140 mmol/L (135-145); Total Protein 6.8 g/dL (6.5-8.0)
[2024-01-28 10:29] LABS: Troponin-I High Sensitivity < 2.7 ng/L (<3.5-17.0)
[2024-01-28 10:48] LABS: B Type Natriuretic Peptide < 10 pg/mL (<100)
[2024-01-28 11:57] VITALS: BP 122/76; PULSE 79; RESP 18; TEMP 36.9; O2SAT 98
== END 2024-01-28 11:57 | disposition home or self-care (01) ==
PROVIDERS: Emergency Provider Emergency Medicine
DX: M94.0 Chondrocostal junction syndrome [Tietze] (principal); R07.89 Other chest pain; Z79.899 Other long term (current) drug therapy
CPT/HCPCS: 36415; 71045; 80048; 80076; 81001; 81003; 83690; 83880; 84484; 85025; 93005; 99283; 99284

== ENCOUNTER → 2024-01-28 08:39 | Outpatient (BNV) | payer OTHER, SELFPAY | PROVIDERS: Emergency Provider Emergency Medicine; Visit Provider Internal Medicine Cardiovascular Disease | DX: R07.9 Chest pain, unspecified (principal) | CPT/HCPCS: 93010 ==

== ENCOUNTER 2024-12-27 05:00 | Emergency (ER) | payer OTHER, SELFPAY ==
[2024-12-27 05:10] VITALS: BP 127/75; PULSE 91; RESP 16; TEMP 36.7; O2SAT 98; BMI 36.0
[2024-12-27 06:21] VITALS: BP 129/78; PULSE 72; RESP 16; TEMP 36.8; O2SAT 99
[2024-12-27 06:37] LABS: IDNOW Serial# 55D5AD1C; Strep A Nucleic Acid Positive (Negative)
--- NOTE | 2024-12-27 06:44 | ED_ITS ---
HPI - General Adult General Chief complaint: Upper Respiratory Symptoms Stated complaint: flu like Time Seen by Provider: 12/27/24 06:43 Source: patient Mode of arrival: ambulatory Limitations: no limitations History of Present Illness ED Provider: DR. Garcia HPI narrative: 29-year-old female came in for evaluation of sore throat, difficulty swallowing, no fever, no chills, patient was exposed to her room beats who was diagnosed with strep pharyngitis. Related Data Previous Rx's ?Medication ?Instructions ?Recorded cephalexin 500 mg capsule 500 mg PO QID 10 days #40 caps 07/16/23 doxycycline hyclate 100 mg tablet 100 mg PO BID #20 tabs 07/16/23 sulfamethoxazole 800 1 tab PO BID #14 tabs 08/08/23 mg-trimethoprim 160 mg tablet (Bactrim DS) cyclobenzaprine 10 mg tablet 10 mg PO TID PRN muscle spasm #20 01/28/24 tabs lidocaine 5 % topical patch 1 patch topical DAILY #30 ea 01/28/24 amoxicillin 875 mg-potassium 1 tab PO BID #20 tabs 12/27/24 clavulanate 125 mg tablet Allergies Allergy/AdvReac Type Severity Reaction Status Date / Time No Known Allergies Allergy Verified 12/27/24 05:11 Review of Systems Review of Systems: All other systems are reviewed and are negative Constitutional: Reports as per HPI and Reports no additional constitutional complaints Eyes: Reports as per HPI and Reports no additional eye complaints Reports system reviewed and no additional complaints, except as documented Cardiovascular: Reports as per HPI and Reports no additional cardiovascular complaints Respiratory: Reports as per HPI and Reports no additional respiratory complaints Gastrointestinal: Reports as per HPI and Reports no additional gastrointestinal complaints Genitourinary: Reports no additional female genitourinary complaints Musculoskeletal: Reports no additional musculoskeletal complaints Skin/Breast: Reports system reviewed and no additional complaints, except as docu Psychiatric: Reports no additional psychiatric complaints Endocrine: Reports no additional endocrine complaints Hematologic/Lymphatic: Reports no additional hematologic/lymphatic complaints Allergic/Immunologic: Reports no additional allergic/immunologic complaints Reports system reviewed and no additional complaints, except as documented and Reports Abnormal speech present [facility] Past Medical History Medical History Chest pain Social History Social History Patient Tobacco Use Status: Never used Tobacco Advance Directives: No Advance Directives Information Provided: Yes Do you have a plan to hurt others: No Plan Physical Exam ED Vital Signs: Vital Signs - 24 hr 12/27/24 05:10 12/27/24 06:21 Temperature 98.1 F 98.3 F Pulse Rate 91 72 Respiratory Rate 16 16 Blood Pressure 127/75 129/78 Pulse Oximetry 98 99 Oxygen Delivery Method Room Air BMI result Body Mass Index 36.0 Vital signs have been reviewed and appear to be correct. Blood pressure elevated. Heart rate normal. Respiratory rate normal. Temperature normal. Oxygen saturation normal. Appearance: Alert. Oriented X3. No acute distress. Head: Normal external exam. Normocephalic. Atraumatic. No Damon signs noted. No raccoon eyes noted Eyes: PERRLA. EOMI. Conjunctiva and sclera normal. Eyelids normal. ENT: TM's Normal. Pharyngeal erythema with tonsillar exudate, no abscess is appreciated, Uvula midline. Moist mucous membranes. No trismus noted. No drooling noted. No muffled voice noted. Neck: Normal inspection. Neck supple. FROM. No adenopathy. Thyroid Normal. No meningeal signs. No neck mass noted. CVS: Normal heart rate and rhythm. Heart sound normal. No murmurs noted. Pulses normal throughout. Respiratory: No respiratory distress. Painless inspiration. Breath sounds normal. No wheezes/rales/rhonchi noted. Chest nontender. No accessory muscle usage noted or decreased air movement noted. Abdomen: Soft and nontender. Bowel sounds normal in all 4 quadrants. No distention noted. No organomegaly noted. No visible injury noted. Back: No CVA tenderness. Full range of motion noted. Skin: Skin warm and dry. Normal skin color. Normal skin turgor. No rashes/lesions/lacerations noted. Extremities: No lower extremity edema. Extremities exhibit normal range of motion. Extremities nontender. Neuro: Oriented X 3. Cranial nerve exam: II-XII are grossly intact No motor deficit. No sensory deficit. Reflexes normal. Medical Decision Making Differential Diagnosis Differential Diagnoses: The differential diagnosis associated with the presentation includes (Strep pharyngitis, viral infection,) Admission/Observation Consideration of admission/observation: Escalation of care including admission/observation considered Lab Data Labs: Lab Results 12/27/24 Range/Units 06:20 S. pyogenes GrpA SANDRA Positive A (Negative) Discharge Plan Discharge Clinical Impression: Pharyngitis Patient Disposition: Home, Self-Care Instructions: Pharyngitis (ED) Prescriptions: New amoxicillin-pot clavulanate 875-125 mg tablet 1 tab PO BID Qty: 20 0RF No Action sulfamethoxazole-trimethoprim [Bactrim DS] 800-160 mg tablet 1 tab PO BID Qty: 14 0RF cyclobenzaprine 10 mg tablet 10 mg PO TID PRN (Reason: muscle spasm) Qty: 20 0RF lidocaine 5 % adhesive patch,medicated 1 patch topical DAILY Qty: 30 0RF Rx Instructions: leave on most painful area for up to 12 hrs cephalexin 500 mg capsule 500 mg PO QID 10 Days Qty: 40 0RF doxycycline hyclate 100 mg tablet 100 mg PO BID Qty: 20 0RF Stand Alone Forms: Work/School Release Print Language: Maltese
[2024-12-27 07:02] VITALS: BP 129/78; PULSE 72; RESP 16; TEMP 36.8; O2SAT 99
[2024-12-27 07:03] LABS: Influenza A PCR NEGATIVE (Negative); Influenza B PCR NEGATIVE (Negative); Resp Syncy Virus RNA Qual PCR NEGATIVE (Negative); SARS COV2 PCR INHOUSE NEGATIVE (Negative)
[2024-12-27] MEDS: Amoxicillin/Potassium Clav 875 MG TABLET PO (07:14)
== END 2024-12-27 07:17 | disposition home or self-care (01) ==
PROVIDERS: Emergency Provider Emergency Medicine
DX: J02.9 Acute pharyngitis, unspecified (principal); R13.10 Dysphagia, unspecified; Z03.818 Encounter for observation for suspected exposure to other biological agents ruled out
CPT/HCPCS: 0241U; 87651; 99283

== ENCOUNTER 2025-04-18 12:36 | Outpatient (AMB) | payer OTHER, SELFPAY ==
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
--- OUTSIDE RECORDS SUMMARY | 2025-04-18 13:19 | XMS_ITS ---
[facility] Organization Unknown Care Team Organization Name Specialty Phone Email Start Date End Da te [facility] Maribel Jones Primary [facility] 11/12/2022 04/25/2024 [facility] Karla Lynch Primary Care 07/15/2022 04/25/2024
--- OUTSIDE RECORDS SUMMARY | 2025-04-18 13:19 | XMS_ITS | Clinical Summary ---
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 4 Active methocarbamoL (ROBAXIN) 500 mg tablet Take 1 tablet (500 mg total) by mouth. 4 Active albuterol HFA (PROAIR HFA ; PROVENTIL HFA ; VENTOLIN HFA) 90 mcg/actuation inhaler Inhale 2 puffs by mouth. 3 Active omeprazole (PriLOSEC) [address] capsule Take 1 capsule (20 mg total) by mouth 1 (one) time each day. 4 Active cyclobenzaprine (FLEXERIL) 5 mg tablet TAKE 1 TABLET (ORAL) 3 TIMES PER DAY (MUSCLE SPASM) FOR 3 DAYS 5 Active naproxen (NAPROSYN) 500 mg tablet Take 1 tablet (500 mg total) by mouth. 4 03/28/20 25 Discontinu ed(Non-com pliance) cholecalciferol (Vitamin D3) 50 mcg (2,000 unit) tablet Take 1 tablet (2,000 Units total) by mouth 1 (one) time each day. 90 tablet 1 03/28/20 25 Discontinu ed(Non-com pliance) Active Problems Problem Noted Date Diagnosed Date POTS (postural orthostatic tachycardia syndrome) 02/15/2024 Mild persistent asthma without complication 09/07 Bipolar affective disorder, current episode mixed ([facility] V24, [facility] V28) 05/22/2022 Major depressive disorder, r ecurrent, moderate ([facility] V24, [facility] V28) 03/31/2017 Generalized anxiety disorder 03/31/2017 Encounters Date Type Department Care Team Description 04/06/2025 Telephone Adult Medicine [address] [phone] Maribel Shipley MD Referral (Rheumatology) 03/28/2025 8:00 AM EDT Office Visit Adult Medicine [address] [phone] Ivon Barr PA POTS (postural orthostatic tachycardia syndrome) (Primary Dx); Mild persistent asthma without complication; Witnessed seizure-like activity ([facility] V24, [facility] V28); Chronic bilateral low back pain without sciatica; Class 1 obesity due to excess calories with serious comorbidity and body mass index (BMI) of 32.0 to 32.9 in adult; Need for hepatitis C screening test; Screening for HIV (human immunodeficiency virus) 02/02/2025 11:30 AM EDT Office Visit Adult [address] [phone] Garry Velez MD Sensorineural hearing loss (SNHL) of right ear with restricted hearing of left ear (Primary Dx); Encounter for vitamin deficiency screening; Screening for diabetes mellitus (DM) from Last 3 Months Immunizations Name Administration Dates Next Due IPV Inactivated polio (Ipol) 6wks and older 11/1999 Influenza Quadravalent, MDCK , 0.5ml, preservative free (Flucelvax) 6mo and older 07/11/2021 MMR, measles mumps and rubel la Live (Priorix; M-M-R II) 12mo and older 05/10/2000,01/24/1997 OPV 04/08/1996,02/09/1996,1995 Tdap Tetanus diptheria acell ular pertussis (Boostrix; Adacel) 7yo and older 07/16/2023,05/15/2015,06/04/2007 Varicella live (Varivax) 12mo and older 04/12/20,01/24/1997 Surgical History Surgery Date Site/Laterality Comments TYMPANOSTOMY TUBE PLACEMENT 12/1996 PROCEDURE: HISTORICAL PE TUBES OTHER SURGICAL HISTORY 02/25/2017 Bilateral PROCEDURE: [place] EXCISION NAIL MATRIX PERMANENT REMOVAL; COMMENT: Dr Villalta medial & lateral borders hallux BL TUBAL LIGATION 03/2022 PROCEDURE: HISTORICAL TUBAL LIGATION; COMMENT: salpingectomy Medical History Medical History Date Comments Hordeolum externum DX:Hordeolum externum Unspecified family circumstance 08/08,04/09,06/10 DX:Unspecified family circumstance; COMMENT: 51A Acute suppurative otitis med ia without spontaneous rupture of eardrum DX:Acute suppurative otitis media without spontaneous rupture of eardrum Unspecified closed fracture of pelvis DX:Unspecified closed fractu re of pelvis Closed fracture of unspecifi ed site of mandible DX:Closed fracture of unspec ified site of mandible Unspecified asthma(493.90) DX:Un specified asthma(493.90) Behavioral problem 04/12/2009 DX:Behavioral problem Family History Medical History Relation Name Comments Drug abuse Brother Asthma Father no contact Heart attack Maternal Grandfather Diabetes Maternal Grandmother lung ca ncer Allergies Mother RA, osteogensis imperfecta, melanoma, ?blood disorder Other cancer Paternal Grandmother stomach Bipolar disorder Sister Other: Autism Son ADHD, anxiety/ depression Relation Name Status Comments Brother Alive 07/09/1988 Father Alive 1970 Maternal Grandfather Alive Maternal Grandmother Mother Alive 1971 Paternal Grandmother Sister Alive 06/12/1993 Son Alive Social History Tobacco Use Types Packs/Day Years Used Date Smoking Tobacco: Former Cigarettes Q uit: 03/23/2019 Smokeless Tobacco: Never Alcohol Use Standard Drinks/Week Comments Yes 0 (1 standard drink = 0.6 oz pur e alcohol) Comments No Sex and Gender Information Value Date Recorded Sex Assigned at Not on file Legal Sex Female 6:59 AM EST Gender Identity Not on file Sexual Orientation Not on file Obstetrics History Last Filed Vital Signs Vital Sign Reading Time Taken Comments Blood Pressure 108/70 03/28/2025 8:22 AM EDT Pulse 72 03/28/2025 8:22 AM EDT Temperature 37.2 C (99 F) 03/28/2025 8:22 AM EDT Respiratory Rate 14 03/28/2025 8:22 AM EDT Oxygen Saturation - - Inhaled Oxygen Concentration - - Weight 87.9 kg (193 lb 12.8 oz) 03/28/2025 8:22 AM EDT Height 165.1 cm (5' 5 ) 03/28/2025 8:22 AM EDT Body Mass Index 32.25 03/28/2025 8:22 AM EDT Plan of Treatment Upcoming Encounters Date Type Department Care Team (Late st Contact Info) Description 05/11/2025 9:00 AM EDT Office Visit Adult Medicine [address] [phone] Maribel Shipley MD [address] [place] [id number] Health Maintenance Due Date Last Done Comments Hepatitis B Vaccines (1 of 3 - 19+ 3-dose series) 2014 Pneumococcal Vaccine: Pediatrics (0 to 5 Years) and At-Risk Patients (6 to 49 Years) (1 of 2 - PCV) 2014 Social Influencers of Health Screening 08/17/2022 Depression Screening 09/07/2024 Influenza Vaccine (#1) 2025 07/11/2021 Cervical Cancer Screening: Pap Smear 09/15/2026 09/15/2023, 09/15/2023 Cholesterol Screening (Lipid Panel) 06/09/2028 06/09/2023 DTaP,Tdap,and Td Vaccines (4 - Td or Tdap) 07/16/2033 07/16/2023, 05/15/2015, 06/04/2007 IPV Vaccines Completed 12/09/1999, 10/1995, 02/09/1996, Additional history exists MMR Vaccines Completed 05/10/2000, 01/24/1997 Varicella Vaccines Completed 04/12/2009, 01/24/1997 COVID-19 Vaccine Discontinued 09/13/2021, , 10/03/2020 HIV Screening Completed 03/28/2025 Hepatitis C Screening Completed 03/28/2025 HIB Vaccines Aged Out No longer eligi ble based on patient's age to complete this topic HPV Vaccines Aged Out No longer eligi ble based on patient's age to complete this topic Hepatitis A Vaccines Aged Out No long er eligible based on patient's age to complete this topic Meningococcal ACWY Vaccine Aged Out N o longer eligible based on patient's age to complete this topic Meningococcal B Vaccine Aged Out No l onger eligible based on patient's age to complete this topic RSV Immunization Patients Under 20 months Aged Out No longer eligible based on patient's age to complete this topic Procedures Procedure Name Priority Date/Time Associated Diagnosis Comments CBC WITH AUTO DIFFERENTIAL Routine 03/28/2025 9:02 AM EDT POTS (postural orthostatic tachycardia syndrome) CBC AND DIFFERENTIAL Routine 03/28/2025 9:02 AM EDT POTS (postural orthostatic tachycardia syndrome) COMPREHENSIVE METABOLIC PANEL Routine 03/28/2025 9:02 AM EDT POTS (postural orthostatic tachycardia syndrome) THYROID STIMULATING HORMONE WITH REFLEX TO FREE T4 AND FREE T3 Routine 03/28/2025 9:02 AM EDT POTS (postural orthostatic tachycardia syndrome) HIV 1, 2 ANTIBODY, P24 ANTIGEN WITH REFLEX TO DIFFERENTIATION Routine 03/28/2025 9:02 AM EDT Screening for HIV (human immunodeficiency virus) HEPATITIS C ANTIBODY Routine 03/28/2025 9:02 AM EDT Need for hepatitis C screening test CBC WITH AUTO DIFFERENTIAL Routine 02/02/2025 9:15 AM EDT Sensorineural hearing loss (SNHL) of right ear with restricted hearing of left ear CBC AND DIFFERENTIAL Routine 02/02/2025 9:15 AM EDT Sensorineural hearing loss (SNHL) of right ear with restricted hearing of left ear COMPREHENSIVE METABOLIC PANEL Routine 02/02/2025 9:15 AM EDT Sensorineural hearing loss (SNHL) of right ear with restricted hearing of left ear VITAMIN D 25 HYDROXY Routine 02/02/2025 9:15 AM EDT Encounter for vitamin deficiency screening VITAMIN B12 AND FOLATE Routine 9:15 AM EDT Encounter for vitamin deficiency screening HEMOGLOBIN A1C Routine 02/02/2025 9:15 AM EDT Screening for diabetes mellitus (DM) THYROID STIMULATING HORMONE WITH REFLEX TO FREE T4 AND FREE T3 Routine 02/02/2025 9:15 AM EDT Sensorineural hearing loss (SNHL) of right ear with restricted hearing of left ear IRON AND TIBC Routine 02/02/2025 9:15 AM EDT Sensorineural hearing loss (SNHL) of right ear with restricted hearing of left ear Encounter for vitamin deficiency screening FERRITIN Routine 02/02/2025 9:15 AM EDT Sensorineural hearing loss (SNHL) of right ear with restricted hearing of left ear Encounter for vitamin deficiency screening HM PAP SMEAR Routine 09/15/2023 LIPID PANEL Routine 06/09/2023 from Last 3 Months or Most Recently Relevant to Health Maintenance Results * Hepatitis C antibody (03/28/2025 9:02 AM EDT) Hepatitis C Antibody Negative Negative LAB CHEMISTRY METHOD 03/28/2025 4:38 PM EDT [facility] Blood Venous blood specimen / Unknown Venipuncture / Unknown 03/28/2025 9:02 AM EDT 03/28/2025 9:02 AM EDT Ivon MELARA LAB BLOOD ORDERABLES Final Resu lt Performing Organization Address City/[facility]/ZIP Co de Phone Number [facility] [address] [place] [address], [place] [phone] * HIV 1,2 antibody, p24 antigen with reflex to differentiation (03/28/2025 9:02 AM EDT) HIV Combo AB/AG Negative Negative LAB CHEMISTRY METHOD 03/28/2025 4:38 PM EDT [facility] Blood Venous blood specimen / Unknown Venipuncture / Unknown 03/28/2025 9:02 AM EDT 03/28/2025 9:02 AM EDT Narrative [facility] - 03/28/2025 4:38 PM EDT This assay is a 4th generation assay allowing for earlier detection of HIV infection by detecting the presence of the HIV-1 p24 antigen as well as the traditional antibodies to HIV type 1 (including group O) and type 2. Use of a 4th generation assay is the current CDC recommendation for HIV screening. Ivon MELARA LAB BLOOD ORDERABLES Final Resu lt Performing Organization Address [facility] de Phone Number [facility] [address] [place] [address], [place] [phone] * Thyroid stimulating hormone with reflex to free t4 and free t3 (03/28/2025 9:02 AM EDT) Only the most recent of2 resultswithin the time period is included. TSH 0.54 0.40 - 4.00 mcIU/mL LAB CHEMISTRY METHOD 03/28/2025 5:25 PM EDT [facility] Blood Venous blood specimen / Unknown Venipuncture / Unknown 03/28/2025 9:02 AM EDT 03/28/2025 9:02 AM EDT Ivon MELARA LAB BLOOD ORDERABLES Final Resu lt [facility] [address] [place] [address], * CBC auto differential (03/28/2025 9:02 AM EDT) Only the most recent of2 resultswithin the time period is included. WBC 6.1 4.8 - 10.8 K/mcL LAB HEMETOLOGY METHOD 03/28/2025 10:28 AM EDT [facility] RBC 4.50 3.80 - 4.80 M/mcL LAB HEMETOLOGY METHOD 03/28/2025 10:28 AM EDT [facility] Hemoglobin 13.3 11.5 - 16.0 g/dL LAB HEMETOLOGY METHOD 03/28/2025 10:28 AM EDT [facility] Hematocrit 41.3 35.0 - 47.0 % LAB HEMETOLOGY METHOD 03/28/2025 10:28 AM EDT [facility] MCV 92.0 79.0 - 98.0 FL LAB HEMETOLOGY METHOD 03/28/2025 10:28 AM EDT [facility] MCH 29.6 27.0 - 32.0 pcg LAB HEMETOLOGY METHOD 03/28/2025 10:28 AM EDT [facility] MCHC 32.2 32.0 - 37.0 g/dL LAB HEMETOLOGY METHOD 03/28/2025 10:28 AM EDT [facility] RDW 12.6 11.0 - 15.0 % LAB HEMETOLOGY METHOD 03/28/2025 10:28 AM EDT [facility] Platelets 280 130 - 400 K/mcL LAB HEMETOLOGY METHOD 03/28/2025 10:28 AM EDT [facility] MPV 10.5 7.0 - 11.0 FL LAB HEMETOLOGY METHOD 03/28/2025 10:28 AM [facility] NRBC 0.0 <1.0 % LAB HEMETOLOGY METHOD 03/28/2025 10:28 AM [facility] NRBC Absolute 0.00 <0.10 K/mcL LAB HEMETOLOGY METHOD 03/28/2025 10:28 AM [facility] Neutrophils Relative 61.1 % LAB HEMETOLOGY METHOD 03/28/2025 10:28 AM [facility] Lymphocytes Relative 27.2 % LAB HEMETOLOGY METHOD 03/28/2025 10:28 AM [facility] Monocytes Relative 7.9 % LAB HEMETOLOGY METHOD 03/28/2025 10:28 AM [facility] Eosinophils Relative 2.6 % LAB HEMETOLOGY METHOD 03/28/2025 10:28 AM [facility] Basophils Relative 1.0 % LAB HEMETOLOGY METHOD 03/28/2025 10:28 AM [facility] Immature Granulocytes Relative 0.2 % LAB HEMETOLOGY METHOD 03/28/2025 10:28 AM [facility] Neutrophils Absolute 3.71 1.50 - 7.00 K/mcL LAB HEMETOLOGY METHOD 03/28/2025 10:28 AM [facility] Lymphocytes Absolute 1.65 1.00 - 5.00 K/mcL LAB HEMETOLOGY METHOD 03/28/2025 10:28 AM [facility] Monocytes Absolute 0.48 0.20 - 1.00 K/mcL LAB HEMETOLOGY METHOD 03/28/2025 10:28 AM [facility] Eosinophils Absolute 0.16 0.00 - 0.50 K/mcL LAB HEMETOLOGY METHOD 03/28/2025 10:28 AM [facility] Basophils Absolute 0.06 0.00 - 0.20 K/mcL LAB HEMETOLOGY METHOD 03/28/2025 10:28 AM EDT [facility] Immature Granulocytes Absolute 0.01 0.00 - 0.03 K/mcL LAB HEMETOLOGY METHOD 03/28/2025 10:28 AM T [facility] Blood Venous blood specimen / Unknown Venipuncture / Unknown 03/28/2025 9:02 AM EDT 03/28/2025 9:02 AM EDT us Ivon MELARA LAB BLOOD ORDERABLES Final Resu lt [facility] [address] [place] [address], [place] [phone] * (ABNORMAL) Comprehensive metabolic panel (03/28/2025 9:02 AM EDT) Only the most recent of2 resultswithin the time period is included. Sodium 140 133 - 145 mmol/L LAB CHEMISTRY METHOD 03/28/2025 2:45 PM [facility] Potassium 4.2 3.5 - 5.5 mmol/L LAB CHEMISTRY METHOD 03/28/2025 2:45 PM [facility] Chloride 109 96 - 110 mmol/L LAB CHEMISTRY METHOD 03/28/2025 2:45 PM [facility] CO2 24 21 - 32 mmol/L LAB CHEMISTRY METHOD 03/28/2025 2:45 PM [facility] Anion Gap 7 3 - 11 LAB CHEMISTRY METHOD 03/28/2025 2:45 PM [facility] Glucose 88 70 - 100 mg/dL LAB CHEMISTRY METHOD 03/28/2025 2:45 PM [facility] BUN 14 5 - 25 mg/dL LAB CHEMISTRY METHOD 03/28/2025 2:45 PM [facility] Creatinine 0.76 0.50 - 1.10 mg/dL LAB CHEMISTRY METHOD 03/28/2025 2:45 PM T [facility] eGFR 109 >=60 mL/min/1. 73m2 LAB CHEMISTRY METHOD 03/28/2025 2:45 PM T [facility] Comment:Calculation based on the Chronic Kidney Disease Epidemiology Collaboration (CKD-EPI) equation refit without adjustment for race. BUN/Creatinine Ratio 18.4 LAB CHEMISTRY METHOD 03/28/2025 2:45 PM EDT [facility] Calcium 9.0 8.5 - 10.5 mg/dL LAB CHEMISTRY METHOD 03/28/2025 2:45 PM [facility] AST (SGOT) 9(L) 10 - 42 unit/L LAB CHEMISTRY METHOD 03/28/2025 2:45 PM [facility] ALT (SGPT) 23 10 - 60 unit/L LAB CHEMISTRY METHOD 03/28/2025 2:45 PM [facility] Alkaline Phosphatase 92 42 - 121 unit/L LAB CHEMISTRY METHOD 03/28/2025 2:45 PM [facility] Total Protein 7.1 6.0 - 8.0 g/dL LAB CHEMISTRY METHOD 03/28/2025 2:45 PM [facility] Albumin 4.4 3.2 - 5.0 g/dL LAB CHEMISTRY METHOD 03/28/2025 2:45 PM [facility] Total Bilirubin 0.4 0.0 - 1.4 mg/dL LAB CHEMISTRY METHOD 03/28/2025 2:45 PM [facility] Blood Venous blood specimen / Unknown Venipuncture / Unknown 03/28/2025 9:02 AM EDT 03/28/2025 9:02 AM EDT us Ivon MELARA LAB BLOOD ORDERABLES Final Resu lt [facility] [address] [place] [address], [place] [phone] * Vitamin B12 and folate (02/02/2025 9:15 AM EDT) Vitamin B-12 400 250 - 900 pcg/mL LAB CHEMISTRY METHOD 02/02/2025 1:23 PM EDT [facility] Folate 6.6 2.8 - 17.0 ng/ml LAB CHEMISTRY METHOD 02/02/2025 1:23 PM EDT [facility] Blood Venous blood specimen / Unknown Venipuncture / Unknown 02/02/2025 9:15 AM EDT 02/02/2025 9:15 AM EDT us Garry Velez MD LAB BLOOD ORDERABLES F inal Result Performing Organization Address [facility]/ZIP Co de Phone Number [facility] [address] [place] [address], [place] [phone] * Iron and TIBC (02/02/2025 9:15 AM EDT) Iron 64 40 - 150 mcg/dL LAB CHEMISTRY METHOD 02/02/2025 1:01 PM EDT [facility] TIBC 327 250 - 450 mcg/dL LAB CHEMISTRY METHOD 02/02/2025 1:01 PM EDT [facility] Iron Saturation 20 15 - 50 % LAB CHEMISTRY METHOD 02/02/2025 1:01 PM EDT [facility] Blood Venous blood specimen / Unknown Venipuncture / Unknown 02/02/2025 9:15 AM EDT 02/02/2025 9:15 AM EDT us Garry Velez MD LAB BLOOD ORDERABLES F inal Result Performing Organization Address City/[facility]/ZIP Co de Phone Number [facility] [address] [place] [address], [place] [phone] * (ABNORMAL) Vitamin D 25 hydroxy (02/02/2025 9:15 AM EDT) Pathologist [facility] Vit D, 25-Hydroxy 24.7(L) 30.0 - 80.0 ng/mL LAB CHEMISTRY METHOD 02/02/2025 2:02 PM EDT [facility] Blood Venous blood specimen / Unknown Venipuncture / Unknown 02/02/2025 9:15 AM EDT 02/02/2025 9:15 AM EDT us Garry Velez MD LAB BLOOD ORDERABLES F inal Result Performing Organization Address City/[facility]/ZIP Co de Phone Number [facility] [address] [place] [address], [place] [phone] * Hemoglobin A1c (02/02/2025 9:15 AM EDT) [facility] Hemoglobin A1C 5.1 <6.5 % LAB CHEMISTRY METHOD 02/02/2025 1:42 PM EDT [facility] Mean Bld Glu Estim. 100 mg/dL LAB CHEMISTRY METHOD 02/02/2025 1:42 PM EDT [facility] Blood Venous blood specimen / Unknown Venipuncture / Unknown 02/02/2025 9:15 AM EDT 02/02/2025 9:15 AM EDT us Garry Velez MD LAB BLOOD ORDERABLES F inal Result [facility] [address] [place] [address], [place] [phone] * Ferritin (02/02/2025 9:15 AM EDT) [facility] Ferritin 25 8 - 252 ng/mL LAB CHEMISTRY METHOD 02/02/2025 1:23 PM EDT [facility] Blood Venous blood specimen / Unknown Venipuncture / Unknown 02/02/2025 9:15 AM EDT 02/02/2025 9:15 AM EDT Garry Velez MD LAB BLOOD ORDERABLES F inal Result [facility] [address] [place] [address], * Hm Pap Smear (09/15/2023) Pap smear Negative Historical Provider HEALTH MAINTENANCE Final Result * Lipid panel (06/09/2023) LDL/HDL Ratio 4 Triglycerides 108 mg/dL Cholesterol 188 mg/dL HDL 48 mg/dL LDL Cholesterol 119 mg/dL Blood Venous blood specimen / Unknown Historical Provider LAB BLOOD ORDERABLES Ana l Result from Last 3 Months or Most Recently Relevant to Health Maintenance Insurance [facility] [employer] Care Teams Weaving Machine Operator Relationship Specialty Start Date End Date Maribel Shipley MD [address] [place] [phone] PCP - General Internal Medicine 04/07/22
== END 2025-04-18 13:08 | disposition home or self-care (01) ==
LOC: HO.HSM 12:36
PROVIDERS: Visit Provider Psychiatry & Neurology Neurology
DX: R56.9 Unspecified convulsions (principal); M54.50 Low back pain, unspecified; F43.10 Post-traumatic stress disorder, unspecified
CPT/HCPCS: 99213

== ENCOUNTER → 2025-04-18 12:36 | Outpatient (BNVA) | payer OTHER, SELFPAY | PROVIDERS: Visit Provider Psychiatry & Neurology Neurology | DX: M54.50 Low back pain, unspecified (principal); R56.9 Unspecified convulsions; F43.10 Post-traumatic stress disorder, unspecified | CPT/HCPCS: 99212 ==

== ENCOUNTER 2025-04-27 09:27 | Outpatient (REF) | payer OTHER, SELFPAY ==
--- NOTE | 2025-04-27 09:54 | EEG_ITS ---
Description: This is a routine waking and sleep EEG using the 10-20 electrode placement system. The waking background activity consists of low-voltage fast frequency seen diffusely intermixed with low to moderate-voltage posterior 11 hertz alpha frequency.? Drowsiness is characterized by diffuse theta slowing. During sleep symmetrical frontocentral sleep spindles develop over both hemispheres. Photic stimulation is without activation.? Hyperventilation produces occasional sharp transient from both temporal regions and in a generalized distribution, left greater than right No focal, lateralizing or paroxysmal discharges are seen. Impression: This waking and sleep EEG is considered borderline at abnormal due to a few instances of sharp discharges seen from the temporal regions during hyperventilation that may suggest some element of cerebral irritability. Clinical correlation is suggested MTDD
--- OUTSIDE RECORDS SUMMARY | 2025-04-27 10:36 | XMS_ITS | Clinical Summary ---
Author Organization [facility] Address [address] [place] [address] Phone Care Team Providers Care Tying In Machine Operator Name Role Phone Maribel Shipley MD Primary Care Prov ider Allergies Active Allergy Reactions Criticality Noted Date Comments Pollen Extracts 03/27/2023 Medications loratadine (CLARITIN) 10 mg tablet Take 1 tablet (10 mg total) by mouth 1 (one) time each day. 09/09/2023 Active methocarbamoL (ROBAXIN) 500 mg tablet Take 1 tablet (500 mg total) by mouth. 09/09/2023 Active albuterol HFA (PROAIR HFA ; PROVENTIL HFA ; VENTOLIN HFA) 90 mcg/actuation inhaler Inhale 2 puffs by mouth. 06/09/2023 Active omeprazole (PriLOSEC) [address] capsule Take 1 capsule (20 mg total) by mouth 1 (one) time each day. 04/29/2024 Active cyclobenzaprine (FLEXERIL) 5 mg tablet TAKE 1 TABLET (ORAL) 3 TIMES PER DAY (MUSCLE SPASM) FOR 3 DAYS 12/08/2024 Active Active Problems Problem Noted Date Diagnosed Date POTS (postural orthostatic tachycardia syndrome) 02/15/2024 Mild persistent asthma without complication 09/07 Bipolar affective disorder, current episode mixed (CMS/HCC V24, CMS/HCC V28) 05/22/2022 Major depressive disorder, r ecurrent, moderate ([facility] V24, [facility] V28) 03/31/2017 Generalized anxiety disorder 03/31/2017 Encounters Date Type Department Care Team Description 04/06/2025 Telephone Adult [address] [phone] Maribel Shipley MD Referral (Rheumatology) 03/28/2025 8:00 AM EDT Office Visit [address] [phone] Ivon Barr PA POTS (postural orthostatic tachycardia syndrome) (Primary Dx); Mild persistent asthma without complication; Witnessed seizure-like activity ([facility] V24, [facility] V28); Chronic bilateral low back pain without sciatica; Class 1 obesity due to excess calories with serious comorbidity and body mass index (BMI) of 32.0 to 32.9 in adult; Need for hepatitis C screening test; Screening for HIV (human immunodeficiency virus) 02/02/2025 11:30 AM EDT Office Visit [address] [phone] Garry Velez MD Sensorineural hearing loss (SNHL) [...] 07/16/2023,05/15/2015,06/04/2007 Varicella live (Varivax) 12mo and older 04/12/20 09,01/24/1997 Surgical History Surgery Date Site/Laterality Comments TYMPANOSTOMY TUBE PLACEMENT 12/1996 PROCEDURE: HISTORICAL PE TUBES OTHER SURGICAL HISTORY 02/25/2017 Bilateral PROCEDURE: NM EXCISION NAIL MATRIX PERMANENT REMOVAL; COMMENT: Dr [...] Care Team (Late st Contact Info) Description 07/19/2025 7:30 AM EST Office Visit Adult Medicine [facility] [address] [place] [address] Ivon Barr PA [address] [place] [address] Health Maintenance Due Date Last Done Comments [...] Hepatitis C antibody (03/28/2025 9:02 AM EDT) [facility] Hepatitis C Antibody Negative Negative LAB CHEMISTRY METHOD 03/28/2025 4:38 PM EDT [facility] Blood Venous blood specimen / Unknown Venipuncture / Unknown 03/28/2025 9:02 AM EDT 03/28/2025 9:02 AM EDT us Ivon MELARA LAB BLOOD ORDERABLES Final Resu lt [facility] [address] [place] [address], [place] [phone] * HIV 1,2 antibody, p24 antigen with reflex to differentiation (03/28/2025 9:02 AM EDT) HIV Combo AB/AG Negative Negative LAB CHEMISTRY METHOD 03/28/2025 4:38 PM EDT [facility] Blood Venous blood specimen / Unknown Venipuncture / Unknown 03/28/2025 9:02 AM EDT 03/28/2025 9:02 AM EDT Narrative [facility] - 03/28/2025 4:38 PM [...] ORDERABLES Final Resu lt Performing Organization Address City/[facility]/ZIP Co de Phone Number [facility] [address] [place] [address], [place] [phone] * Thyroid stimulating hormone with reflex to free t4 and free t3 (03/28/2025 9:02 AM EDT) Only the most recent of2 resultswithin the time period is included. Pathologist [facility] TSH 0.54 0.40 - 4.00 mcIU/mL LAB CHEMISTRY METHOD 03/28/2025 5:25 PM EDT [facility] Blood Venous blood specimen / Unknown Venipuncture / Unknown 03/28/2025 9:02 AM EDT 03/28/2025 9:02 AM EDT Ivon MELARA LAB BLOOD ORDERABLES Final Resu lt [facility] [address] [place] [address], [place] [phone] * CBC auto differential (03/28/2025 9:02 AM EDT) Only the most recent of2 resultswithin the time period is included. Pathologist [facility] WBC 6.1 4.8 - 10.8 K/mcL LAB HEMETOLOGY METHOD 03/28/2025 10:28 AM [facility] RBC 4.50 3.80 - 4.80 M/mcL LAB HEMETOLOGY METHOD 03/28/2025 10:28 AM [facility] Hemoglobin 13.3 11.5 - 16.0 g/dL LAB HEMETOLOGY METHOD 03/28/2025 10:28 AM [facility] Hematocrit 41.3 35.0 - 47.0 % LAB HEMETOLOGY METHOD 03/28/2025 10:28 AM [facility] MCV 92.0 79.0 - 98.0 FL LAB HEMETOLOGY METHOD 03/28/2025 10:28 AM [facility] MCH 29.6 27.0 - 32.0 pcg LAB HEMETOLOGY METHOD 03/28/2025 10:28 AM [facility] MCHC 32.2 32.0 - 37.0 g/dL LAB HEMETOLOGY METHOD 03/28/2025 10:28 AM [facility] RDW 12.6 11.0 - 15.0 % LAB HEMETOLOGY METHOD 03/28/2025 10:28 AM [facility] Platelets 280 130 - 400 K/mcL LAB HEMETOLOGY METHOD 03/28/2025 10:28 AM [facility] MPV 10.5 7.0 - 11.0 FL LAB HEMETOLOGY METHOD 03/28/2025 10:28 AM [facility] NRBC 0.0 <1.0 % LAB HEMETOLOGY METHOD 03/28/2025 10:28 AM [facility] NRBC Absolute 0.00 <0.10 K/mcL LAB HEMETOLOGY METHOD 03/28/2025 10:28 AM [facility] Neutrophils Relative 61.1 % LAB HEMETOLOGY METHOD 03/28/2025 10:28 AM [facility] Lymphocytes Relative 27.2 % LAB HEMETOLOGY METHOD 03/28/2025 10:28 AM [facility] Monocytes Relative 7.9 % LAB HEMETOLOGY METHOD 03/28/2025 10:28 AM [facility] Eosinophils Relative 2.6 % LAB HEMETOLOGY METHOD 03/28/2025 10:28 AM [facility] Basophils Relative 1.0 % LAB HEMETOLOGY METHOD 03/28/2025 10:28 AM [facility] Immature Granulocytes Relative 0.2 % LAB HEMETOLOGY METHOD 03/28/2025 10:28 AM [facility] Neutrophils Absolute 3.71 1.50 - 7.00 K/mcL LAB HEMETOLOGY METHOD 03/28/2025 10:28 AM [facility] Lymphocytes Absolute 1.65 1.00 - 5.00 K/mcL LAB HEMETOLOGY METHOD 03/28/2025 10:28 AM [facility] Monocytes Absolute 0.48 0.20 - 1.00 K/mcL LAB HEMETOLOGY METHOD 03/28/2025 10:28 AM [facility] Eosinophils Absolute 0.16 0.00 - 0.50 K/mcL LAB HEMETOLOGY METHOD 03/28/2025 10:28 AM [facility] Basophils Absolute 0.06 0.00 - 0.20 K/mcL LAB HEMETOLOGY METHOD 03/28/2025 10:28 AM [facility] Immature Granulocytes Absolute 0.01 0.00 - 0.03 K/mcL LAB HEMETOLOGY METHOD 03/28/2025 10:28 AM [facility] Blood Venous blood specimen / Unknown Venipuncture / Unknown 03/28/2025 9:02 AM EDT 03/28/2025 9:02 AM EDT us Ivon MELARA LAB BLOOD ORDERABLES Final Resu lt [facility] [address] [place] [address], [place] [phone] * (ABNORMAL) Comprehensive metabolic panel (03/28/2025 9:02 AM EDT) Only the most recent of2 resultswithin the time period is included. Sodium 140 133 - 145 mmol/L LAB CHEMISTRY METHOD 03/28/2025 2:45 PM EDT [facility] Potassium 4.2 3.5 - 5.5 mmol/L LAB CHEMISTRY METHOD 03/28/2025 2:45 PM [facility] Chloride 109 96 - 110 mmol/L LAB CHEMISTRY METHOD 03/28/2025 2:45 PM [facility] CO2 24 21 - 32 mmol/L LAB CHEMISTRY METHOD 03/28/2025 2:45 PM [facility] Anion Gap 7 3 - 11 LAB CHEMISTRY METHOD 03/28/2025 2:45 PM [facility] Glucose 88 70 - 100 mg/dL LAB CHEMISTRY METHOD 03/28/2025 2:45 PM [facility] BUN 14 5 - 25 mg/dL LAB CHEMISTRY METHOD 03/28/2025 2:45 PM [facility] Creatinine 0.76 0.50 - 1.10 mg/dL LAB CHEMISTRY METHOD 03/28/2025 2:45 PM [facility] eGFR 109 >=60 mL/min/1. 73m2 LAB CHEMISTRY METHOD 03/28/2025 2:45 PM [facility] Comment:Calculation based on the Chronic Kidney Disease Epidemiology Collaboration (CKD-EPI) equation refit without adjustment for race. BUN/Creatinine Ratio 18.4 LAB CHEMISTRY METHOD 03/28/2025 2:45 PM [facility] Calcium 9.0 8.5 - 10.5 mg/dL LAB CHEMISTRY METHOD 03/28/2025 2:45 PM EDT [facility] AST (SGOT) 9(L) 10 - 42 unit/L LAB CHEMISTRY METHOD 03/28/2025 2:45 PM EDT [facility] ALT (SGPT) 23 10 - 60 unit/L LAB CHEMISTRY METHOD 03/28/2025 2:45 PM EDT [facility] Alkaline Phosphatase 92 42 - 121 unit/L LAB CHEMISTRY METHOD 03/28/2025 2:45 PM EDT [facility] Total Protein 7.1 6.0 - 8.0 g/dL LAB CHEMISTRY METHOD 03/28/2025 2:45 PM EDT [facility] Albumin 4.4 3.2 - 5.0 g/dL LAB CHEMISTRY METHOD 03/28/2025 2:45 PM EDT [facility] Total Bilirubin 0.4 0.0 - 1.4 mg/dL LAB CHEMISTRY METHOD 03/28/2025 2:45 PM T [facility] Blood Venous blood specimen / Unknown Venipuncture / Unknown 03/28/2025 9:02 AM EDT 03/28/2025 9:02 AM EDT us Ivon MELARA LAB BLOOD ORDERABLES Final Resu lt [facility] [address] [place] [address], * Vitamin B12 and folate (02/02/2025 9:15 AM EDT) Vitamin B-12 400 250 - 900 pcg/mL LAB CHEMISTRY METHOD 02/02/2025 1:23 PM EDT [facility] Folate 6.6 2.8 - 17.0 ng/ml LAB CHEMISTRY METHOD 02/02/2025 1:23 PM EDT [facility] Blood Venous blood specimen / Unknown Venipuncture / Unknown 02/02/2025 9:15 AM EDT 02/02/2025 9:15 AM EDT us Garry Velez MD LAB BLOOD ORDERABLES F inal Result Performing Organization Address [facility] Co de Phone Number [facility] [address] [place] [address], [place] [phone] * Iron and TIBC (02/02/2025 9:15 AM EDT) Iron 64 40 - 150 mcg/dL LAB CHEMISTRY METHOD 02/02/2025 1:01 PM EDT [facility] TIBC 327 250 - 450 mcg/dL LAB CHEMISTRY METHOD 02/02/2025 1:01 PM EDT [facility] Iron Saturation 20 15 - 50 % LAB CHEMISTRY METHOD 02/02/2025 1:01 PM EDT [facility] Blood Venous blood specimen / Unknown Venipuncture / Unknown 02/02/2025 9:15 AM EDT 02/02/2025 9:15 AM EDT us Garry Velez MD LAB BLOOD ORDERABLES F inal Result Performing Organization Address [facility] Co de Phone Number [facility] [address] [place] [address], [place] [phone] * (ABNORMAL) Vitamin D 25 hydroxy (02/02/2025 9:15 AM EDT) Vit D, 25-Hydroxy 24.7(L) 30.0 - 80.0 ng/mL LAB CHEMISTRY METHOD 02/02/2025 2:02 PM EDT [facility] Blood Venous blood specimen / Unknown Venipuncture / Unknown 02/02/2025 9:15 AM EDT 02/02/2025 9:15 AM EDT us Garry Velez MD LAB BLOOD ORDERABLES F inal Result Performing Organization Address City/[facility]/ZIP Co de Phone Number [facility] [address] [place] [address], [place] [phone] * Hemoglobin A1c (02/02/2025 9:15 AM EDT) Hemoglobin A1C 5.1 <6.5 % LAB CHEMISTRY METHOD 02/02/2025 1:42 PM EDT [facility] Mean Bld Glu Estim. 100 mg/dL LAB CHEMISTRY METHOD 02/02/2025 1:42 PM EDT [facility] Blood Venous blood specimen / Unknown Venipuncture / Unknown 02/02/2025 9:15 AM EDT 02/02/2025 9:15 AM EDT us Garry Velez MD LAB BLOOD ORDERABLES F inal Result Performing Organization Address [facility]/ZIP Co de Phone Number [facility] [address] [place] [address], [place] [phone] * Ferritin (02/02/2025 9:15 AM EDT) Pathologist [facility] Ferritin 25 8 - 252 ng/mL LAB CHEMISTRY METHOD 02/02/2025 1:23 PM EDT [facility] Blood Venous blood specimen / Unknown Venipuncture / Unknown 02/02/2025 9:15 AM EDT 02/02/2025 9:15 AM EDT us Garry Velez MD LAB BLOOD ORDERABLES F inal Result Performing Organization Address City/[facility]/ZIP Co de Phone Number [facility] [address] [place] [address], [place] [phone] * Hm Pap Smear (09/15/2023) HM Pap smear Negative us Historical Provider HEALTH MAINTENANCE Final Result * Lipid panel (06/09/2023) LDL/HDL Ratio 4 Triglycerides 108 mg/dL Cholesterol 188 mg/dL HDL 48 mg/dL LDL Cholesterol 119 mg/dL Blood Venous blood specimen / Unknown us Historical Provider LAB BLOOD ORDERABLES Ana l Result from Last 3 Months or Most Recently Relevant to Health Maintenance Insurance [employer] Care Teams Tying In Machine Operator Relationship Specialty Start Date End Date Maribel Shipley MD [address] [place] [id number] PCP - General Internal Medicine 04/07/22
== END 2025-04-27 09:28 | disposition home or self-care (01) ==
LOC: HO.NEURO 09:27
PROVIDERS: PCP Internal Medicine; Visit Provider Psychiatry & Neurology Neurology
DX: R56.9 Unspecified convulsions (principal)
CPT/HCPCS: 95816

== ENCOUNTER → 2025-04-27 09:54 | Outpatient (BNV) | payer OTHER, SELFPAY | PROVIDERS: PCP Internal Medicine; Visit Provider Psychiatry & Neurology Neurology | DX: R56.9 Unspecified convulsions (principal) | CPT/HCPCS: 95816 ==

== ENCOUNTER 2025-05-08 15:35 | Outpatient (REF) | payer OTHER, SELFPAY ==
--- NOTE | ~2025-05-08 | MR_ITS ---
EXAMINATION: MR BRAIN WITHOUT CONTRAST CLINICAL INFORMATION: Unspecified seizures. COMPARISON: None available. TECHNIQUE: MRI of the brain was obtained using routine sequences without contrast. FINDINGS: No restricted diffusion. No acute intracranial hemorrhage, mass effect, midline shift, hydrocephalus or herniation. Talley-white matter differentiation is normal. Bilateral, a few, scattered, punctate deep white matter hyperintense T2 FLAIR signal involving mostly the frontal lobes. No heterotopia/no migrational disorder.. Flow-void signal within the main cerebral vessels is normal. No signal abnormality or volume loss in the hippocampi. Sellar/suprasellar region is normal. Craniocervical junction demonstrates normal position of the cerebellar tonsils. Mucosal thickening, paranasal sinuses. MR/MR head/brain wo con IMPRESSION: No acute or structural brain abnormality. Nonspecific white matter T2 FLAIR signal. This could be seen patients with migraines. Electronically signed by: Osiel Bonilla MD 05/09/2025 07:36 AM EDT
--- OUTSIDE RECORDS SUMMARY | 2025-05-08 15:37 | XMS_ITS | Encounter Summary ---
Author Organization [facility] Address [address] [place] [address] Care Team Providers Care Gun Perforator Loader Name Role Phone Maribel Shipley MD Primary Care Prov ider Reason for Referral * Consultation (Routine) - Pending Review Specialty Diagnoses / Procedures Referred By Gris kee Referred To Contact Rheumatology Diagnoses Connective tissue disease ([facility] V24) Ivon Barr PA [address] [place], [place] Phone: tel: fax: Tito Gamez MD [address] [place] [phone] Phone: tel: fax: Referral ID Status Reason Start Date Expiration Date Visits Requested Visits Authorized [id number] Pending Review Specialty Services Required 04/06/2025 04/06/2026 1 1 Reason for Visit * Reason Onset Date Comments Referral 04/06/2025 Rheumatology Encounter Details Date Type Department Care Team ([facility] st Contact Info) Description 04/06/2025 Telephone Adult Medicine [facility] [address] [place], [place] [phone] Maribel Shipley MD [address] [place] [address] Social History Tobacco Use Types Packs/Day Years [...] on file Sexual Orientation Not on file documented as of this encounter Progress Notes * Ophelia Naranjo - 04/07/2025 3:17 PM EDT Spoke with patient was notified that we are sending out her order to the offices and that they willcontact her for appointment will follow up to make sure appointments given. * SARITHA Cm - 04/06/2025 3:43 PM EDT All set * Ophelia Naranjo - 04/06/2025 3:36 PM EDT I have pended an order for your review, please sign if in agreement. documented in this encounter Plan of Treatment Upcoming Encounters Date Type Department Care Team (Late st Contact Info) Description 07/19/2025 7:30 AM EST Office Visit Adult Medicine [address] [phone] Ivon Barr PA [address] [place] [address] Scheduled Referrals Name Type Priority Associated Diagnoses Order Schedule Ambulatory referral to Rheumatology Outpatient Referral Routine Connective tissue disease ([facility] V24) Expected: 10/07/2025, Expires: 04/06/2026 documented as of this encounter Visit Diagnoses Diagnosis Connective tissue disease ([facility] V24)- Primary Unspecified diffuse connective tissue disease documented in this encounter Care Teams Gun Perforator Loader Relationship Specialty Start Date End Date Maribel Shipley MD [address] [place] [address] PCP - General Internal Medicine 04/07/22 documented as of this encounter
--- OUTSIDE RECORDS SUMMARY | 2025-05-08 15:37 | XMS_ITS | Clinical Summary ---
Author Organization [facility] Address [address] [place] [address] Phone Care Team Providers Care Underwater Photographer Name Role Phone Maribel Shipley MD Primary [...] 05/22/2022 Major depressive disorder, r ecurrent, moderate ([facility] V24, [facility] V28) 03/31/2017 Generalized anxiety disorder 03/31/2017 Encounters Date Type Department Care Team Description 04/06/2025 Telephone Adult Medicine [address] [phone] Maribel Bird MD 03/28/2025 8:00 AM EDT Office Visit Adult Medicine [address] [phone] Ivon Barr PA POTS (postural orthostatic tachycardia syndrome) (Primary Dx); Mild persistent asthma without complication; Witnessed seizure-like activity ([facility] V24, [facility] V28); Chronic bilateral low back pain without sciatica; Class 1 obesity due to excess calories with serious comorbidity and body mass index (BMI) of 32.0 to 32.9 in adult; Need for hepatitis C screening test; Screening for HIV (human immunodeficiency virus) from Last 3 Months Immunizations Name Administration [...] TUBES OTHER SURGICAL HISTORY 02/25/2017 Bilateral PROCEDURE: MT EXCISION NAIL MATRIX PERMANENT REMOVAL; COMMENT: Dr [...] AM EST Office Visit Adult Medicine [facility] [address] [place], [place] [phone] Ivon Barr PA [address] [place], [place] Health Maintenance Due Date Last Done Comments [...] EDT Need for hepatitis C screening test HM PAP SMEAR Routine 09/15/2023 LIPID PANEL Routine 06/09/2023 from Last 3 Months or Most Recently Relevant to Health Maintenance Results * Hepatitis C antibody (03/28/2025 9:02 AM EDT) Hepatitis C Antibody Negative Negative LAB CHEMISTRY METHOD 03/28/2025 4:38 PM EDT [facility] Blood Venous blood specimen / Unknown Venipuncture / Unknown 03/28/2025 9:02 AM EDT 03/28/2025 9:02 AM EDT us Ivon MELARA LAB BLOOD ORDERABLES Final Resu lt [facility] [address] [place] [address], [place] [phone] * HIV 1,2 antibody, p24 antigen with reflex to differentiation (03/28/2025 9:02 AM EDT) [facility] HIV Combo AB/AG Negative Negative LAB CHEMISTRY METHOD 03/28/2025 4:38 PM EDT [facility] Blood Venous blood specimen / Unknown Venipuncture / Unknown 03/28/2025 9:02 AM EDT 03/28/2025 9:02 AM EDT Narrative [facility] - 03/28/2025 4:38 PM EDT This [...] ORDERABLES Final Resu lt Performing Organization Address [facility]/ZIP Co de Phone Number [facility] [address] [place] [address], [place] [phone] * Thyroid stimulating hormone with reflex to free t4 and free t3 (03/28/2025 9:02 AM EDT) [facility] TSH 0.54 0.40 - 4.00 mcIU/mL LAB CHEMISTRY METHOD 03/28/2025 5:25 PM EDT [facility] Blood Venous blood specimen / Unknown Venipuncture / Unknown 03/28/2025 9:02 AM EDT 03/28/2025 9:02 AM EDT Ivon MELARA LAB BLOOD ORDERABLES Final Resu lt [facility] [address] [place] [address], [place] [phone] * CBC auto differential (03/28/2025 9:02 AM EDT) [facility] WBC 6.1 4.8 - 10.8 K/mcL LAB HEMETOLOGY METHOD 03/28/2025 10:28 AM [facility] RBC 4.50 3.80 - 4.80 M/mcL LAB HEMETOLOGY METHOD 03/28/2025 10:28 AM [facility] Hemoglobin 13.3 11.5 - 16.0 g/dL LAB HEMETOLOGY METHOD 03/28/2025 10:28 AM [facility] Hematocrit 41.3 35.0 - 47.0 % LAB HEMETOLOGY METHOD 03/28/2025 10:28 AM [facility] MCV 92.0 79.0 - 98.0 FL LAB HEMETOLOGY METHOD 03/28/2025 10:28 AM [facility] MCH 29.6 27.0 - 32.0 pcg LAB HEMETOLOGY METHOD 03/28/2025 10:28 AM [facility] MCHC 32.2 32.0 - 37.0 g/dL LAB HEMETOLOGY METHOD 03/28/2025 10:28 AM [facility] RDW 12.6 11.0 - 15.0 % LAB HEMETOLOGY METHOD 03/28/2025 10:28 AM [facility] Platelets 280 130 - 400 K/mcL LAB HEMETOLOGY METHOD 03/28/2025 10:28 AM [facility] MPV 10.5 7.0 - 11.0 FL LAB HEMETOLOGY METHOD 03/28/2025 10:28 AM [facility] NRBC 0.0 <1.0 % LAB HEMETOLOGY METHOD 03/28/2025 10:28 AM [facility] NRBC Absolute 0.00 <0.10 K/mcL LAB HEMETOLOGY METHOD 03/28/2025 10:28 AM [facility] Neutrophils Relative 61.1 % LAB HEMETOLOGY METHOD 03/28/2025 10:28 AM [facility] Lymphocytes Relative 27.2 % LAB HEMETOLOGY METHOD 03/28/2025 10:28 AM [facility] Monocytes Relative 7.9 % LAB HEMETOLOGY METHOD 03/28/2025 10:28 AM [facility] Eosinophils Relative 2.6 % LAB HEMETOLOGY METHOD 03/28/2025 10:28 AM [facility] Basophils Relative 1.0 % LAB HEMETOLOGY METHOD 03/28/2025 10:28 AM [facility] Immature Granulocytes Relative 0.2 % LAB HEMETOLOGY METHOD 03/28/2025 10:28 AM [facility] Neutrophils Absolute 3.71 1.50 - 7.00 K/mcL LAB HEMETOLOGY METHOD 03/28/2025 10:28 AM [facility] Lymphocytes Absolute 1.65 1.00 - 5.00 K/mcL LAB HEMETOLOGY METHOD 03/28/2025 10:28 AM [facility] Monocytes Absolute 0.48 0.20 - 1.00 K/mcL LAB HEMETOLOGY METHOD 03/28/2025 10:28 AM [facility] Eosinophils Absolute 0.16 0.00 - 0.50 K/mcL LAB HEMETOLOGY METHOD 03/28/2025 10:28 AM [facility] Basophils Absolute 0.06 0.00 - 0.20 K/mcL LAB HEMETOLOGY METHOD 03/28/2025 10:28 AM [facility] Immature Granulocytes Absolute 0.01 0.00 - 0.03 K/mcL LAB HEMETOLOGY METHOD 03/28/2025 10:28 AM [facility] Blood Venous blood specimen / Unknown Venipuncture / Unknown 03/28/2025 9:02 AM EDT 03/28/2025 9:02 AM EDT us Ivon MELARA LAB BLOOD ORDERABLES Final Resu lt [facility] [address] [place] [address], [place] [phone] * (ABNORMAL) Comprehensive metabolic panel (03/28/2025 9:02 AM EDT) Sodium 140 133 - 145 mmol/L LAB CHEMISTRY METHOD 03/28/2025 2:45 PM EDT [facility] Potassium 4.2 3.5 - 5.5 mmol/L LAB CHEMISTRY METHOD 03/28/2025 2:45 PM [facility] Chloride 109 96 - 110 mmol/L LAB CHEMISTRY METHOD 03/28/2025 2:45 PM [facility] CO2 24 21 - 32 mmol/L LAB CHEMISTRY METHOD 03/28/2025 2:45 PM [facility] Anion Gap 7 3 - 11 LAB CHEMISTRY METHOD 03/28/2025 2:45 PM [facility] Glucose 88 70 - 100 mg/dL LAB CHEMISTRY METHOD 03/28/2025 2:45 PM [facility] BUN 14 5 - 25 mg/dL LAB CHEMISTRY METHOD 03/28/2025 2:45 PM [facility] Creatinine 0.76 0.50 - 1.10 mg/dL LAB [facility]STR[facility] 109 >=60 mL/min/1. 73m2 LAB CHEMISTRY METHOD 03/28/2025 2:45 PM [facility] Comment:Calculation based on the Chronic Kidney Disease Epidemiology Collaboration (CKD-EPI) equation refit without adjustment for race. BUN/Creatinine Ratio 18.4 LAB CHEMISTRY METHOD 03/28/2025 2:45 PM [facility] Calcium 9.0 8.5 - 10.5 mg/dL LAB CHEMISTRY METHOD 03/28/2025 2:45 PM EDT [facility] AST (SGOT) 9(L) 10 - 42 unit/L LAB CHEMISTRY METHOD 03/28/2025 2:45 PM EDT [facility] ALT (SGPT) 23 10 - 60 unit/L LAB CHEMISTRY METHOD 03/28/2025 2:45 PM EDT [facility] Alkaline Phosphatase 92 42 - 121 unit/L LAB CHEMISTRY METHOD 03/28/2025 2:45 PM EDT [facility] Total Protein 7.1 6.0 - 8.0 g/dL LAB CHEMISTRY METHOD 03/28/2025 2:45 PM EDT [facility] Albumin 4.4 3.2 - 5.0 g/dL LAB CHEMISTRY METHOD 03/28/2025 2:45 PM EDT [facility] Total Bilirubin 0.4 0.0 - 1.4 mg/dL LAB CHEMISTRY METHOD 03/28/2025 2:45 PM EDT [facility] Blood Venous blood specimen / Unknown Venipuncture / Unknown 03/28/2025 9:02 AM EDT 03/28/2025 9:02 AM EDT Ivon MELARA LAB BLOOD ORDERABLES Final Resu lt [facility] [address] [place] [address], * Hm Pap Smear (09/15/2023) Pap smear Negative Historical Provider HEALTH MAINTENANCE Final Result * Lipid panel (06/09/2023) LDL/HDL Ratio 4 Triglycerides 108 mg/dL Cholesterol 188 mg/dL HDL 48 mg/dL LDL Cholesterol 119 mg/dL Blood Venous blood specimen / Unknown Historical Provider LAB BLOOD ORDERABLES Ana l Result from Last 3 Months or Most Recently Relevant to Health Maintenance Insurance [facility] Care Teams Underwater Photographer Relationship Specialty Start Date End Date Maribel Shipley MD [address] [place] [phone] PCP - General Internal Medicine 04/07/22
== END 2025-05-08 15:36 | disposition home or self-care (01) ==
LOC: HO.MRI 15:35
PROVIDERS: PCP Internal Medicine; Visit Provider Psychiatry & Neurology Neurology
DX: R56.9 Unspecified convulsions (principal)
CPT/HCPCS: 70551

== ENCOUNTER → 2025-05-08 15:43 | Outpatient (BNV) | payer OTHER, SELFPAY | PROVIDERS: PCP Internal Medicine; Visit Provider Radiology Diagnostic Radiology | DX: R90.82 White matter disease, unspecified (principal) | CPT/HCPCS: 70551 ==

== ENCOUNTER → 2025-06-20 12:43 | Outpatient (BNVA) | payer OTHER, SELFPAY | PROVIDERS: PCP Internal Medicine; Visit Provider Psychiatry & Neurology Neurology | DX: M54.50 Low back pain, unspecified (principal); F43.10 Post-traumatic stress disorder, unspecified; R56.9 Unspecified convulsions | CPT/HCPCS: 99212 ==

== ENCOUNTER → 2025-06-20 12:43 | Outpatient (AMB) | payer OTHER, SELFPAY ==
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
--- OUTSIDE RECORDS SUMMARY | 2025-06-20 15:21 | XMS_ITS | Clinical Summary ---
Author Organization [facility] Address [address] [place] [address] Phone Care Team Providers Care Quantitative Equity Head Name Role Phone Maribel Shipley MD Primary [...] (MUSCLE SPASM) FOR 3 DAYS 12/08/2024 Active HYDROcodone-carlos taminophen (NORCO) 5-325 mg per tabletIndicatio ns:Closed boxer's fracture with delayed healing, subsequent encounter Take 1 tablet by mouth every 6 (six) hours if needed for severe pain for up to 3 days. Max Daily Amount: 4 tablets 12 tablet 06/14/2025 06/17/20 Active Problems Problem Noted Date Diagnosed Date POTS (postural orthostatic tachycardia syndrome) 02/15/2024 Mild persistent asthma without complication 09/07 Bipolar affective disorder, current episode mixed ([facility] V24, [facility] V28) 05/22/2022 Major depressive disorder, r ecurrent, moderate ([facility] V24, [facility] V28) 03/31/2017 Generalized anxiety disorder 03/31/2017 Encounters Date Type Department Care Team Description 06/14/2025 9:23 AM EDT - 06/14/2025 1:28 PM EDT Emergency [facility] Emergency [address] [place] [id number] Abdoulaye Velasco MD Closed boxer's fracture with delayed healing, subsequent encounter (Primary Dx) Discharge Disposition: Home or Self Care 04/06/2025 Telephone Adult Medicine [address] [phone] Maribel Bird MD 03/28/2025 8:00 AM EDT Office Visit Adult Medicine [address] [phone] Ivon Barr PA POTS (postural orthostatic tachycardia syndrome) (Primary Dx); Mild persistent asthma without complication; Witnessed seizure-like activity ([facility] V24, [facility] V28); Chronic bilateral low back pain without sciatica; Class 1 obesity due to excess calories with serious comorbidity and body mass index (BMI) of 32.0 to 32.9 in adult; Need for hepatitis C screening test; Screening for HIV (human immunodeficiency virus) from Last 3 Months Immunizations Immunization Administration Dates Next Due IPV Inactivated polio [...] TUBES OTHER SURGICAL HISTORY 02/25/2017 Bilateral PROCEDURE: IN EXCISION NAIL MATRIX PERMANENT REMOVAL; COMMENT: Dr [...] Sign Reading Time Taken Comments Blood Pressure 103/64 06/14/2025 10:35 AM EDT Pulse 53 06/14/2025 9:12 AM EDT Temperature 36.7 C (98.1 F) 06/14/2025 10:35 AM EDT Respiratory Rate 16 06/14/2025 9:12 AM EDT Oxygen Saturation 100% 06/14/2025 10:35 AM EDT Inhaled Oxygen Concentration - - Weight 83.9 kg (185 lb) 06/14/2025 10:35 AM EDT Height 162.6 cm (5' 4 ) 06/14/2025 9:12 AM EDT Body Mass Index 31.76 06/14/2025 9:12 AM EDT Plan of Treatment Upcoming Encounters Date Type Department Care Team (Late st Contact Info) Description 07/11/2025 12:30 PM EST Office Visit Adult Medicine [facility] [address] [place] [address] Ivon Barr PA [address] [place], [place] Health Maintenance Due Date Last Done Comments Hepatitis B Vaccines (1 of 3 - 19+ 3-dose series) 2014 Pneumococcal Vaccine: Pediatrics (0 to 5 Years) and At-Risk Patients (6 to 49 Years) (1 of 2 - PCV) 2014 Social Influencers of Health Screening 08/17/2022 HPV Vaccines (1 - 3-dose SCDM series) 2022 Depression Screening 09/07/2024 Influenza Vaccine (#1) 2025 07/11/2021 Cervical Cancer Screening: Pap Smear 09/15/2026 09/15/2023, 09/15/2023 Cholesterol Screening (Lipid Panel) 06/09/2028 06/09/2023 DTaP,Tdap,and Td Vaccines (4 - Td or Tdap) 07/16/2033 07/16/2023, 05/15/2015, 06/04/2007 RSV Immunization Adult Patients (1 - 1-dose 75+ series) 2070 IPV Vaccines Completed 12/09/1999, 10/1995, 02/09/1996, Additional [...] Procedure Name Priority Date/Time Associated Diagnosis Comments HC APPLICATION SPLINT/CAST/STRAP Routine 06/14/2025 5:27 PM EDT HC TREATMENT DISLOCATION Routine 025 5:27 PM EDT IN TREATMENT DISLOCATION METACARPOPHALANGEAL SINGLE CLOSED W MAN WO ANES Routine 06/14/2025 5:27 PM EDT XR HAND 3+ VIEWS RIGHT STAT 5 12:24 PM EDT XR HAND 3+ VIEWS RIGHT STAT 5 10:05 AM EDT XR FOREARM 2 VIEWS RIGHT STAT 025 10:05 AM EDT EXTERNAL MRI REPORT Routine 05/08/2025 9 :46 AM EDT CBC WITH AUTO DIFFERENTIAL Routine 03/28/2025 9:02 [...] Recently Relevant to Health Maintenance Results * IN TREATMENT DISLOCATION METACARPOPHALANGEAL SINGLE CLOSED W MAN WO ANES, HC TREATMENT DISLOCATION,HC APPLICATION SPLINT/CAST/STRAP (06/14/2025 5:27 PM EDT) Abdoulaye Paul MD - 06/14/2025 5:27 PM EDT Abdoulaye Velasco MD 06/14/2025 5:29 PM Orthopedic Injury Treatment - Upper Extremity Date/Time: 06/14/2025 5:27 PM Performed by: Abdoulaye Velasco MD Authorized by: Abdoulaye Velasco MD Consent: Consent obtained: Written Consent given by: Patient Risks, benefits, and alternatives were discussed: yes Risks discussed: Fracture, irreducible dislocation, recurrent dislocation, restricted joint movement, stiffness and nerve damage Alternatives discussed: No treatment [place] protocol: Patient identity confirmed: Verbally with patient Location: Location: Finger Finger location: R little finger Finger dislocation type: MCP Pre-procedure details: Pre-procedure imaging: X-ray Imaging findings: fracture present Imaging findings: no joint dislocation Distal perfusion: normal Sedation: Sedation type: None Anesthesia: Anesthesia method: Nerve block Block location: Hematoma block to distal end of rt fifth metacarpal Block needle gauge: 25 G Block anesthetic: Lidocaine 1% WITH epi Block technique: Hematoma block Block injection procedure: Anatomic landmarks identified, anatomic landmarks palpated, incremental injection, introduced needle and negative aspiration for blood Block outcome: Anesthesia achieved Procedure details: Manipulation performed: yes Finger reduction method: Direct traction Reduction successful: no Reduction confirmed with imaging: yes Immobilization: Splint Splint type: Ulnar gutter Supplies used: Fiberglass and cotton padding Post-procedure details: Neurological function: normal Distal perfusion: normal Range of motion: normal Procedure completion: Tolerated well, no immediate complications Abdoulaye Velasco MD IN CLINIC/BEDSIDE ORDERABLES Fin al Result * XR Hand 3+ Views Right (06/14/2025 12:24 PM EDT) Only the most recent of2 resultswithin the time period is included. Anatomical Region Laterality Modality Upper Extremities, Hand Right [facility] 06/14/2025 12:5 3 PM EDT Impressions 06/14/2025 12:55 PM EDT FINDINGS/IMPRESSION: Mildly displaced angulated fracture of the 5th metacarpal neck. Soft tissue swelling. -------- FINAL REPORT -------- Dictated By: Alex Gamez Dictated Date: 06/14/2025 12:53 ET Assigned Physician: Alex Gamez Reviewed and Electronically Signed By: Alex Gamez Signed Date: 06/14/2025 12:55 ET Workstation ID: [id number] Transcribed By: Self Edit Transcribed Date: 06/14/2025 12:53 ET Narrative 06/14/2025 12:55 PM EDT XR HAND 3+ VIEWS RIGHT INDICATION: POST REDUCTION WILL CALL TECHNIQUE: XR HAND 3+ VIEWS RIGHT COMPARISON: None Procedure Note Alex Gamez MD - 06/14/2025 XR HAND 3+ VIEWS RIGHT INDICATION: POST REDUCTION WILL CALL TECHNIQUE: XR HAND 3+ VIEWS RIGHT COMPARISON: None IMPRESSION: FINDINGS/IMPRESSION: Mildly displaced angulated fracture of the 5thmetacarpal neck. Soft tissue swelling. -------- FINAL REPORT -------- Dictated By: Alex Gamez Dictated Date: 06/14/2025 12:53 ET Assigned Physician: Alex Gamez Reviewed and Electronically Signed By: Alex Gamez Signed Date: 06/14/2025 12:55 ET Workstation ID: [id number] Transcribed By: Self Edit Transcribed Date: 06/14/2025 12:53 ET us Abdoulaye Velasco MD IMG XR PROCEDURES Final Result * XR Forearm 2 Views Right (06/14/2025 10:05 AM EDT) Anatomical Region Laterality Modality Upper Extremities, Forearm Right [facility] 06/14/2025 10:1 4 AM EDT Impressions 06/14/2025 10:15 AM EDT Impression: 1. Angulated distal fifth metacarpal fracture. 2. No forearm fracture identified. Telerad PA ([id number]) -------- FINAL REPORT -------- Dictated By: Allyson Parikh Dictated Date: 06/14/2025 10:14 ET Assigned Physician: Allyson Parikh Reviewed and Electronically Signed By: Allyson Parikh Signed Date: 06/14/2025 10:15 ET Workstation ID: [id number] Transcribed By: Self Edit Transcribed Date: 06/14/2025 10:14 ET Narrative 06/14/2025 10:15 AM EDT History: Right forearm pain after punching wall. Findings: AP and lateral views of the right forearm. The known angulated fifth metacarpal fracture is partially imaged. No fracture of the radius or ulna is seen. The radiocarpal joint is well- maintained. The elbow is unremarkable as visualized. Procedure Note Allyson Parikh MD - 06/14/2025 History: Right forearm pain after punching wall. Findings: AP and lateral views of the right forearm. The known angulated fifthmetacarpal fracture is partially imaged. No fracture of the radius or ulna is seen. The radiocarpal joint iswell- maintained. The elbow is unremarkable as visualized. IMPRESSION: Impression: 1. Angulated distal fifth metacarpal fracture. 2. No forearm fracture identified. Telerad PA ([id number]) -------- FINAL REPORT -------- Dictated By: Allyson Parikh Dictated Date: 06/14/2025 10:14 ET Assigned Physician: Allyson Parikh Reviewed and Electronically Signed By: Allyson Parikh Signed Date: 06/14/2025 10:15 ET Workstation ID: [id number] Transcribed By: Self Edit Transcribed Date: 06/14/2025 10:14 ET Abdoulaye Velasco MD IMG XR PROCEDURES Final Result * External MRI Report (05/08/2025 9:46 AM EDT) Anatomical Region Laterality Modality Magnetic Resonan ce Historical Provider IMG MRI PROCEDURES Final Result * Hepatitis C antibody (03/28/2025 9:02 AM EDT) Pathologist [facility] Hepatitis C Antibody Negative Negative LAB CHEMISTRY METHOD 03/28/2025 4:38 PM EDT [facility] Blood Venous blood specimen / Unknown Venipuncture / Unknown 03/28/2025 9:02 AM EDT 03/28/2025 9:02 AM EDT Ivon MELARA LAB BLOOD ORDERABLES Final Resu lt [facility] [address] [place] [address], [place] [phone] * HIV 1,2 antibody, p24 antigen with reflex to differentiation (03/28/2025 9:02 AM EDT) [facility] HIV Combo AB/AG Negative Negative LAB CHEMISTRY METHOD 03/28/2025 4:38 PM EDT [facility] Blood Venous blood specimen / Unknown Venipuncture / Unknown 03/28/2025 9:02 AM EDT 03/28/2025 9:02 AM EDT Narrative [facility] - 03/28/2025 4:38 PM EDT [...] ORDERABLES Final Resu lt Performing Organization Address City/[facility]/ZIP Co de Phone Number [facility] [address] [place] [address], * Thyroid stimulating hormone with reflex to free t4 and free t3 (03/28/2025 9:02 AM EDT) Pathologist [facility] TSH 0.54 0.40 - 4.00 mcIU/mL LAB CHEMISTRY METHOD 03/28/2025 5:25 PM EDT [facility] Blood Venous blood specimen / Unknown Venipuncture / Unknown 03/28/2025 9:02 AM EDT 03/28/2025 9:02 AM EDT Ivon MELARA LAB BLOOD ORDERABLES Final Resu lt Performing Organization Address [facility]/ZIP Co de Phone Number [facility] [address] [place] [address], * CBC auto differential (03/28/2025 9:02 AM EDT) Pathologist [facility] WBC 6.1 4.8 - 10.8 K/mcL LAB HEMETOLOGY METHOD 03/28/2025 10:28 AM EDT [facility] RBC 4.50 3.80 - 4.80 M/mcL LAB HEMETOLOGY METHOD 03/28/2025 10:28 AM EDT [facility] Hemoglobin 13.3 11.5 - 16.0 g/dL LAB HEMETOLOGY METHOD 03/28/2025 10:28 AM EDT [facility] Hematocrit 41.3 35.0 - 47.0 % LAB HEMETOLOGY METHOD 03/28/2025 10:28 AM EDT [facility] MCV 92.0 79.0 - 98.0 FL LAB HEMETOLOGY METHOD [facility]28[facility]25 [facility] MCH 29.6 27.0 - 32.0 pcg LAB HEMETOLOGY METHOD 03/28/2025 10:28 AM [facility] MCHC 32.2 32.0 - 37.0 g/dL LAB HEMETOLOGY METHOD 03/28/2025 10:28 AM [facility] RDW 12.6 11.0 - 15.0 % LAB HEMETOLOGY METHOD 03/28/2025 10:28 AM [facility] Platelets 280 130 - 400 K/mcL LAB HEMETOLOGY METHOD 03/28/2025 10:28 AM [facility] MPV 10.5 7.0 - 11.0 FL LAB HEMETOLOGY METHOD 03/28/2025 10:28 AM [facility] NRBC 0.0 <1.0 % LAB HEMETOLOGY METHOD 03/28/2025 10:28 AM [facility] NRBC Absolute 0.00 <0.10 K/mcL LAB HEMETOLOGY METHOD 03/28/2025 10:28 AM [facility] Neutrophils Relative 61.1 % LAB HEMETOLOGY METHOD 03/28/2025 10:28 AM [facility] Lymphocytes Relative 27.2 % LAB HEMETOLOGY METHOD 03/28/2025 10:28 AM [facility] Monocytes Relative 7.9 % LAB HEMETOLOGY METHOD 03/28/2025 10:28 AM [facility] Eosinophils Relative 2.6 % LAB HEMETOLOGY METHOD 03/28/2025 10:28 AM [facility] Basophils Relative 1.0 % LAB HEMETOLOGY METHOD 03/28/2025 10:28 AM [facility] Immature Granulocytes Relative 0.2 % LAB HEMETOLOGY METHOD 03/28/2025 10:28 AM [facility] Neutrophils Absolute 3.71 1.50 - 7.00 K/mcL LAB HEMETOLOGY METHOD 03/28/2025 10:28 AM EDT [facility] Lymphocytes Absolute 1.65 1.00 - 5.00 K/[facility] LAB HEMETOLOGY METHOD 03/28/2025 10:28 AM EDT [facility] Monocytes Absolute 0.48 0.20 - 1.00 K/[facility] LAB HEMETOLOGY METHOD 03/28/2025 10:28 AM EDT [facility] Eosinophils Absolute 0.16 0.00 - 0.50 K/[facility] LAB HEMETOLOGY METHOD 03/28/2025 10:28 AM EDT [facility] Basophils Absolute 0.06 0.00 - 0.20 K/[facility] LAB HEMETOLOGY METHOD 03/28/2025 10:28 AM EDT [facility] Immature Granulocytes Absolute 0.01 0.00 - 0.03 K/[facility] LAB HEMETOLOGY METHOD 03/28/2025 10:28 AM EDT [facility] Blood Venous blood specimen / Unknown Venipuncture / Unknown 03/28/2025 9:02 AM EDT 03/28/2025 9:02 AM EDT Ivon MELARA LAB BLOOD ORDERABLES Final Resu lt [facility] [address] [place] [address], * (ABNORMAL) Comprehensive metabolic panel (03/28/2025 9:02 AM EDT) Sodium 140 133 - 145 mmol/L LAB CHEMISTRY METHOD 03/28/2025 2:45 PM EDT [facility] Potassium 4.2 3.5 - 5.5 mmol/L LAB CHEMISTRY METHOD 03/28/2025 2:45 PM EDT [facility] Chloride 109 96 - 110 mmol/L LAB CHEMISTRY METHOD 03/28/2025 2:45 PM EDT [facility] CO2 24 21 - 32 mmol/L LAB CHEMISTRY METHOD 03/28/2025 2:45 PM [facility] Anion Gap 7 3 - 11 LAB CHEMISTRY METHOD 03/28/2025 2:45 PM [facility] Glucose 88 70 - 100 mg/dL LAB CHEMISTRY METHOD 03/28/2025 2:45 PM [facility] BUN 14 5 - 25 mg/dL LAB CHEMISTRY METHOD 03/28/2025 2:45 PM [facility] Creatinine 0.76 0.50 - 1.10 mg/dL LAB CHEMISTRY METHOD 03/28/2025 2:45 PM [facility] eGFR 109 >=60 mL/min/1. 73m2 LAB CHEMISTRY METHOD 03/28/2025 2:45 PM [facility] Comment:Calculation based on the Chronic Kidney Disease Epidemiology Collaboration (CKD-EPI) equation refit without adjustment for race. BUN/Creatinine Ratio 18.4 LAB CHEMISTRY METHOD 03/28/2025 2:45 PM [facility] Calcium 9.0 8.5 - 10.5 mg/dL LAB CHEMISTRY METHOD 03/28/2025 2:45 PM [facility] AST (SGOT) 9(L) 10 - 42 unit/L LAB CHEMISTRY METHOD 03/28/2025 2:45 PM [facility] ALT (SGPT) 23 10 - 60 unit/L LAB CHEMISTRY METHOD 03/28/2025 2:45 PM [facility] Alkaline Phosphatase 92 42 - 121 unit/L LAB CHEMISTRY METHOD 03/28/2025 2:45 PM [facility] Total Protein 7.1 6.0 - 8.0 g/dL LAB CHEMISTRY METHOD 03/28/2025 2:45 PM [facility] Albumin 4.4 3.2 - 5.0 g/dL LAB CHEMISTRY METHOD 03/28/2025 2:45 PM EDT [facility] Total Bilirubin 0.4 0.0 - 1.4 mg/dL LAB CHEMISTRY METHOD 03/28/2025 2:45 PM EDT [facility] Blood Venous blood specimen / Unknown Venipuncture / Unknown 03/28/2025 9:02 AM EDT 03/28/2025 9:02 AM EDT Ivon MELARA LAB BLOOD ORDERABLES Final Resu lt [facility] [address] [place] [address], * Hm Pap Smear (09/15/2023) Pap smear Negative Historical Provider HEALTH MAINTENANCE Final Result * Lipid panel (06/09/2023) LDL/HDL Ratio 4 Triglycerides 108 mg/dL Cholesterol 188 mg/dL HDL 48 mg/dL LDL Cholesterol 119 mg/dL Blood Venous blood specimen / Unknown Historical Provider LAB BLOOD ORDERABLES Ana l Result from Last 3 Months or Most Recently Relevant to Health Maintenance Insurance [facility] Care Teams Quantitative Equity Head Relationship Specialty Start Date End Date Maribel Shipley MD [address] [place] [address] PCP - General Internal Medicine 04/07/22
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
== END ==
LOC: HO.HSM 12:44
PROVIDERS: PCP Internal Medicine; Visit Provider Psychiatry & Neurology Neurology
DX: R56.9 Unspecified convulsions (principal); M54.50 Low back pain, unspecified; F43.10 Post-traumatic stress disorder, unspecified
CPT/HCPCS: 99214